=== PATIENT | female | born 1950 | race American Indian/Alaskan Native ===

== ENCOUNTER 2017-06-17 16:22 | Emergency (ER) | payer MEDICARE ==
--- NOTE | 2017-06-17 17:35 | Emergency Department Report ---
ED Psych HPI - General Chief Complaint: Psych Stated Complaint: CAN'T SLEEP Time Seen by Provider: 06/17/17 17:17 Source: patient Mode of arrival: Ambulatory - History of Present Illness Initial Comments: 67-year-old female presents to the ER with complaints of suicidal ideation. This has been going on for the last 2 weeks. Patient attributes this problem to her psychiatric medications not working like they should. She rigors have been ordered. Patient also on quinine name, denies visual hallucinations, she has a plan for suicidal ideations but she does not internal pain amounts. She plans on overdosing on psych medications she denies homicidal ideations she Mata's history of amotivation, insomnia, no energy and no mood, she stated there has been no change in appetite. She does have a past history of similar problems, some in the past have required institutionalization. MD Complaint: suicidal ideation, feels depressed -: Gradual, week(s) (2) Associated Psychiatric Symptoms: depression, suicidal ideation, racing thoughts , auditory hallucinations, delusions History of same: Yes Quality: intermittent Improves With: none Worsens With: none Associated Symptoms: denies other symptoms, insomnia. denies: confusion, headache, shortness of breath, nausea, vomiting, syncope Treatments Prior to Arrival: placed on mental he If Self Harm: admits thoughts of, has plan, intentional overdose - Related Data Home Medications Medication Instructions Recorded Confirmed Last Taken ARIPiprazole [Abilify TAB] 5 mg PO DAILY 07/16/15 06/17/17 06/16/17 Cholecalciferol Vit D3 [Vitamin D3] 1,000 unit PO QDAY 07/16/15 06/17/17 Haloperidol [Haldol] 2 mg PO QHS 07/16/15 06/17/17 06/16/17 LORazepam [Ativan] 1 mg PO QHS 07/16/15 06/17/17 06/16/17 Lisinopril/Hydrochlorothiazide 1 tab PO QDAY 07/16/15 06/17/17 06/16/17 [Zestoretic 20-25 mg] Multivit-Min/Iron/Folic/Lutein 1 tab PO DAILY 07/16/15 06/17/17 06/16/17 [Centrum Silver Women Tablet] Potassium Chloride 10 meq PO QDAY 07/16/15 06/17/17 06/16/17 lamoTRIgine [LaMICtal] 25 mg PO BID 07/16/15 06/17/17 06/16/17 traZODone [Desyrel] 1 tab PO QHS 07/16/15 06/17/17 06/16/17 Previous Rx's Medication Instructions Recorded Last Taken Type Pantoprazole [Protonix TAB] 40 mg PO DAILY #30 tablet 07/19/15 06/16/17 Rx Allergies Allergy/AdvReac Type Severity Reaction Status Date / Time lithium Allergy Hives Verified 06/17/17 19:53 ED Review of Systems ROS: Stated complaint: CAN'T SLEEP Other details as noted in HPI Constitutional: denies: chills, diaphoresis, fever, malaise, weakness Eyes: denies: eye pain, eye discharge, vision change ENT: denies: ear pain, throat pain, dental pain, hearing loss Respiratory: denies: see HPI, cough, shortness of breath, SOB with exertion Cardiovascular: denies: chest pain, palpitations, dyspnea on exertion, edema, syncope, paroxysmal nocturnal dyspnea Endocrine: denies: no symptoms reported, increased hunger, increased thirst, increased urine Gastrointestinal: denies: abdominal pain, nausea, vomiting, diarrhea, constipation, melena Genitourinary: denies: urgency, dysuria, frequency, hematuria Musculoskeletal: denies: joint swelling, arthralgia Skin: denies: change in color, change in hair/nails Neurological: denies: headache, weakness, numbness Psychiatric: as per HPI, depression, auditory hallucinations, suicidal thoughts. denies: visual hallucinations, homicidal thoughts Hematological/Lymphatic: denies: easy bruising ED Past Medical Hx - Past Medical History Hx Hypertension: Yes Hx Congestive Heart Failure: No Hx Diabetes: No Hx Psychiatric Treatment: Yes (anxiety) Hx Asthma: No Hx COPD: No Hx HIV: No Additional medical history: Large bowel Polyps - Surgical History Hx Appendectomy: Yes (age 13) Additional Surgical History: tubal ligation. 3 surgeries to feet - Social History Smoking Status: Former Smoker Substance Use Type: None - Medications Home Medications: Home Medications Medication Instructions Recorded Confirmed Last Taken Type ARIPiprazole [Abilify TAB] 5 mg PO DAILY 07/16/15 06/17/17 06/16/17 History Cholecalciferol Vit D3 [Vitamin D3] 1,000 unit PO QDAY 07/16/15 06/17/17 History Haloperidol [Haldol] 2 mg PO QHS 07/16/15 06/17/17 06/16/17 History LORazepam [Ativan] 1 mg PO QHS 07/16/15 06/17/17 06/16/17 History Lisinopril/Hydrochlorothiazide 1 tab PO QDAY 07/16/15 06/17/17 06/16/17 History [Zestoretic 20-25 mg] Multivit-Min/Iron/Folic/Lutein 1 tab PO DAILY 07/16/15 06/17/17 06/16/17 History [Centrum Silver Women Tablet] Potassium Chloride 10 meq PO QDAY 07/16/15 06/17/17 06/16/17 History lamoTRIgine [LaMICtal] 25 mg PO BID 07/16/15 06/17/17 06/16/17 History traZODone [Desyrel] 1 tab PO QHS 07/16/15 06/17/17 06/16/17 History Pantoprazole [Protonix TAB] 40 mg PO DAILY #30 tablet 07/19/15 06/17/17 Rx ED Physical Exam - General Limitations: No Limitations General appearance: alert - Head Head exam: Present: atraumatic, normocephalic, normal inspection - Eye Eye exam: Present: normal appearance, PERRL, EOMI Pupils: Present: normal accommodation - ENT ENT exam: Present: normal exam, normal orophraynx, mucous membranes moist - Neck Neck exam: Present: normal inspection, full ROM - Respiratory Respiratory exam: Present: normal lung sounds bilaterally - Cardiovascular Cardiovascular Exam: Present: regular rate, normal rhythm, normal heart sounds - GI/Abdominal GI/Abdominal exam: Present: soft, normal bowel sounds. Absent: rebound, hyperactive bowel sounds, hypoactive bowel sounds, organomegaly, mass, pulsatile mass - Rectal Rectal exam: Present: deferred - Extremities Exam Extremities exam: Present: normal inspection, full ROM, normal capillary refill - Back Exam Back exam: Present: normal inspection, full ROM. Absent: CVA tenderness (L), muscle spasm, paraspinal tenderness, vertebral tenderness - Neurological Exam Neurological exam: Present: alert, oriented X3, CN II-XII intact, normal gait - Psychiatric Psychiatric exam: Present: depressed, suicidal ideation. Absent: flat affect, manic, homicidal ideation - Skin Skin exam: Present: warm, dry ED Course Vital Signs 06/17/17 06/17/17 16:49 18:42 Temperature 98.1 F 98.6 F Pulse Rate 89 88 Respiratory 18 16 Rate Blood Pressure 130/84 Blood Pressure 115/73 [Right] O2 Sat by Pulse 100 99 Oximetry - Consultations Consultation #1: 06/17/17 20:02 I transferred care of the patient to Dr Fitch ED Medical Decision Making - Lab Data Result diagrams: 06/17/17 17:18 06/17/17 17:18 Critical Care Time: No Critical care attestation.: If time is entered above; I have spent that time in minutes in the direct care of this critically ill patient, excluding procedure time. ED Disposition Clinical Impression: Suicidal ideations Disposition: DC/TX-65 PSY HOSP/PSY UNIT Is pt being admited?: No Does the pt Need Aspirin: No Condition: Stable Time of Disposition: 20:04 (patient transferred to Dr. Fitch)
[2017-06-17 17:44] LABS: Basophils % (Auto) 0.7 % (0.0-1.8); Eosinophils % (Auto) 0.7 % (0.0-4.3); Hematocrit 35.3 % (30.3-42.9); Hemoglobin 11.4 gm/dl (10.1-14.3); Mean Corpuscular HGB Conc 32 % (30-34); Mean Corpuscular Hemoglobin 28 pg (28-32); Mean Corpuscular Volume 86 fl (79-97); Platelet Count 272 K/mm3 (140-440); Red Blood Count 4.12 M/mm3 (3.65-5.03); Red Cell Distribution Width 14.4 % (13.2-15.2)
[2017-06-17 17:45] LABS: BUN/Creatinine Ratio 17.85; Calcium 9.6 mg/dL (8.4-10.2); Chloride 99.4 mmol/L (98-107); Potassium 4.1 mmol/L (3.6-5.0)
[2017-06-17 19:33] LABS: Urine Drugs of Abuse Note Disclamer
[2017-06-17 19:47] LABS: Bacteria,Urine 1+ /HPF (Negative); Bilirubin,Urine NEG (Negative); Blood,Urine NEG (Negative); Ketones,Urine NEG (Negative); Leukocyte Esterase,Urine TR (Negative); Mucus,Urine FEW /HPF; Nitrite,Urine NEG (Negative); Protein,Urine <15 mg/dL mg/dL (Negative); Urobilinogen,Urine < 2.0 mg/dL (<2.0)
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
[2017-06-18 17:37] VITALS: BP 138/72
== END 2017-06-18 17:38 ==
LOC: EEVIPCON 16:22 → ED 16:22
DX: R45.851 Suicidal ideations (principal); I10 Essential (primary) hypertension; F41.9 Anxiety disorder, unspecified; Z90.49 Acquired absence of other specified parts of digestive tract; Z98.51 Tubal ligation status; Z87.891 Personal history of nicotine dependence; Z88.8 Allergy status to other drugs, medicaments and biological substances
CPT/HCPCS: 36415; 80048; 80307; 81001; 85025; 99285; G0480; 80320

== ENCOUNTER 2018-06-29 10:45 | Emergency (ER) | payer MEDICARE ==
[2018-06-29] MEDS ORDERED: ASPIRIN PO ONE (11:07)
--- NOTE | 2018-06-29 12:01 | Emergency Department Report ---
ED Dizziness HPI - General Chief Complaint: Dizziness Stated Complaint: CHEST PAIN Time Seen by Provider: 06/29/18 11:48 Source: family Mode of arrival: Ambulatory Limitations: Language Barrier - History of Present Illness Initial Comments: Patient is 68 years old female with history of hypertension and a remote stroke when she was 41 years old.. The patient presented to the ER complaining of episodes of palpitation right sided chest pain and dizziness. Patient said it happened 3 or 4 times last night. Patient stated that she still having dizziness. Patient denied any headache, focal weakness numbness or tingling sensation. No bowel or bladder incontinence. MD Complaint: dizziness, lightheadedness -: Last night Timing: sudden onset Description: lightheadedness History of Same: No History of Trauma: No Severity: moderate Improves With: nothing Associated Symptoms: chest pain (RT SIDED CHEST PAIN) - Related Data Home Medications Medication Instructions Recorded Confirmed Last Taken ARIPiprazole [Abilify TAB] 5 mg PO DAILY 07/16/15 06/29/18 06/16/17 Cholecalciferol Vit D3 [Vitamin D3] 1,000 unit PO QDAY 07/16/15 06/29/18 Haloperidol [Haldol] 2 mg PO QHS 07/16/15 06/29/18 06/16/17 LORazepam [Ativan] 1 mg PO QHS 07/16/15 06/29/18 06/16/17 Lisinopril/Hydrochlorothiazide 1 tab PO QDAY 07/16/15 06/29/18 06/16/17 [Zestoretic 20-25 mg] Multivit-Min/Iron/Folic/Lutein 1 tab PO DAILY 07/16/15 06/29/18 06/16/17 [Centrum Silver Women Tablet] Potassium Chloride 10 meq PO QDAY 07/16/15 06/29/18 06/16/17 lamoTRIgine [LaMICtal] 25 mg PO BID 07/16/15 06/29/18 06/16/17 traZODone [Desyrel] 1 tab PO QHS 07/16/15 06/29/18 06/16/17 Previous Rx's Medication Instructions Recorded Last Taken Type Pantoprazole [Protonix TAB] 40 mg PO DAILY #30 tablet 07/19/15 06/16/17 Rx Allergies Allergy/AdvReac Type Severity Reaction Status Date / Time lithium Allergy Hives Verified 06/17/17 19:53 ED Review of Systems ROS: Stated complaint: CHEST PAIN Other details as noted in HPI Comment: All other systems reviewed and negative Constitutional: denies: chills, fever Respiratory: denies: cough, orthopnea, shortness of breath, SOB with exertion, wheezing Cardiovascular: chest pain, palpitations. denies: dyspnea on exertion, orthopnea, edema Gastrointestinal: denies: abdominal pain, nausea, vomiting, diarrhea, constipation, hematemesis, melena, hematochezia Genitourinary: denies: urgency, dysuria, frequency, hematuria Neurological: denies: headache, weakness, numbness, paresthesias, confusion, abnormal gait Psychiatric: anxiety. denies: depression, auditory hallucinations, visual hallucinations, homicidal thoughts, suicidal thoughts ED Past Medical Hx - Past Medical History Previous Medical History?: Yes Hx Hypertension: Yes Hx CVA: Yes (I had a stroke when i was 41 years old) Hx Congestive Heart Failure: No Hx Diabetes: No Hx Psychiatric Treatment: Yes (anxiety) Hx Asthma: No Hx COPD: No Hx HIV: No Additional medical history: Large bowel Polyps - Surgical History Hx Appendectomy: Yes (age 13) Additional Surgical History: tubal ligation. 3 surgeries to feet - Social History Smoking Status: Never Smoker - Medications Home Medications: Home Medications Medication Instructions Recorded Confirmed Last Taken Type ARIPiprazole [Abilify TAB] 5 mg PO DAILY 07/16/15 06/29/18 06/16/17 History Cholecalciferol Vit D3 [Vitamin D3] 1,000 unit PO QDAY 07/16/15 06/29/18 History Haloperidol [Haldol] 2 mg PO QHS 07/16/15 06/29/18 06/16/17 History LORazepam [Ativan] 1 mg PO QHS 07/16/15 06/29/18 06/16/17 History Lisinopril/Hydrochlorothiazide 1 tab PO QDAY 07/16/15 06/29/18 06/16/17 History [Zestoretic 20-25 mg] Multivit-Min/Iron/Folic/Lutein 1 tab PO DAILY 07/16/15 06/29/18 06/16/17 History [Centrum Silver Women Tablet] Potassium Chloride 10 meq PO QDAY 07/16/15 06/29/1817 History lamoTRIgine [LaMICtal] 25 mg PO BID 07/16/15 06/29/18 06/16/17 History traZODone [Desyrel] 1 tab PO QHS 07/16/15 06/29/18 06/16/17 History Pantoprazole [Protonix TAB] 40 mg PO DAILY #30 tablet 07/19/15 06/29/18 Rx ED Physical Exam - General Limitations: Language Barrier General appearance: alert, in no apparent distress - Head Head exam: Present: atraumatic, normocephalic, normal inspection - Eye Eye exam: Present: normal appearance, PERRL - ENT ENT exam: Present: normal exam, normal orophraynx, mucous membranes moist, TM's normal bilaterally - Neck Neck exam: Present: normal inspection, full ROM. Absent: tenderness, meningismus, lymphadenopathy, thyromegaly - Respiratory Respiratory exam: Present: normal lung sounds bilaterally. Absent: respiratory distress, wheezes, rales, rhonchi, stridor, chest wall tenderness, accessory muscle use, decreased breath sounds, prolonged expiratory - Cardiovascular Cardiovascular Exam: Present: regular rate, normal rhythm, normal heart sounds - GI/Abdominal GI/Abdominal exam: Present: soft, normal bowel sounds. Absent: distended, tenderness, guarding, rebound, rigid, organomegaly, mass, bruit, pulsatile mass , hernia - Extremities Exam Extremities exam: Present: normal inspection, full ROM, normal capillary refill - Back Exam Back exam: Present: normal inspection, full ROM. Absent: tenderness, CVA tenderness (R), CVA tenderness (L), muscle spasm, paraspinal tenderness, vertebral tenderness, rash noted - Neurological Exam Neurological exam: Present: alert, oriented X3, CN II-XII intact, normal gait, reflexes normal - Psychiatric Psychiatric exam: Present: anxious. Absent: depressed, agitated, flat affect, manic, homicidal ideation, suicidal ideation - Skin Skin exam: Present: warm, intact, normal color ED Course Vital Signs 06/29/18 06/29/18 06/29/18 11:03 13:16 15:45 Temperature 98.0 F Pulse Rate 91 H 62 64 Respiratory 16 16 Rate Blood Pressure 129/81 Blood Pressure 137/80 148/68 [Left] O2 Sat by Pulse 98 99 94 Oximetry 06/29/18 17:29 Temperature Pulse Rate 74 Respiratory 16 Rate Blood Pressure Blood Pressure 112/70 [Left] O2 Sat by Pulse 96 Oximetry ED Medical Decision Making - Lab Data Result diagrams: 06/29/18 11:40 06/29/18 11:40 - EKG Data -: EKG Interpreted by Ne EKG shows normal: sinus rhythm Rate: normal - EKG Data Interpretation: no acute changes - Radiology Data Radiology results: report reviewed Referring Physician: VANCE BOUCHER Patient Name: KERRIE DIXON Date of : 1950 Sex: Female Report Date: 2018-06-29 Report Status: Finalized Findings [facility] [address] [place] [address] Cat Scan Report Signed Patient: KERRIE DIXON MR#: [id number] : 1950 Acct:[id number] Age/Sex: 68 / F ADM Date: 06/29/18 Loc: ED Attending Dr: Ordering Physician: VANCE BOUCHER Date of Service: 06/29/18 Procedure(s): CT angio chest Accession Number(s): [id number] cc: VANCE BOUCHER FINAL REPORT EXAM: CT ANGIO CHEST HISTORY: CHEST PAIN, palpitation TECHNIQUE: CT examination of the chest with IV contrast CT angiographic 2D and thick slab 3D image post-processing PRIORS: None. FINDINGS: Normal cardiac size without pericardial effusion. Intact normal caliber thoracic aorta with slight calcified atherosclerotic plaque. Normal-appearing esophagus. No evidence of hilar mass or mediastinal adenopathy. The visualized pulmonary arteries are diffusely patent bilaterally. There is no filling defect to suggest PE. A nonspecific, smoothly marginated, low density, simple appearing left renal lesion is statistically most likely a cyst. Degenerative change regional skeleton. No evidence of acute fracture. No pneumothorax, pleural effusion, or focal pulmonary consolidation. Nonspecific irregularly marginated ground-glass with adjacent linear densities are noted in the right middle lobe anteriorly. These likely reflect scarring. Differential includes slight atelectasis or minimal pneumonitis. Largest region measures approximately 12 mm. IMPRESSION: Nonspecific ground-glass opacities in right middle lobe may be scarring, atelectasis, or pneumonitis. Largest is 12 mm. Given a minimally nodular appearance to these areas of density, consider followup chest CT in 3-6 months to ensure stability or resolution No CT evidence of PE Transcribed By: ANA Dictated By: CORAL HOUSER MD Electronically Authenticated By: CORAL HOUSER MD Signed Date/Time: 06/29/181436 DD/ 36 TD/TT: 06/29/181436 - Medical Decision Making Pineda is 68 years old female with history of hypertension and a remote stroke when she was 41 years old. The patient presented to the ER complaining of episodes of palpitation right sided chest pain and dizziness. Patient said it happened 3 or 4 times last night. Patient stated that she still having dizziness. Patient denied any headache, focal weakness numbness or tingling sensation. No bowel or bladder incontinence. Patient immediately put on configuration management specialist. EKG is 90 specific was no acute ST elevation. 2 sets of troponin is negative. Patient d-dimer came back slightly But the CTA chest is negative for acute PE. CT brain is negative for acute finding to explain her dizziness. Patient stated that she did not have any more episodes. 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 Patient discharged home in a stable clinical condition. Critical care attestation.: If time is entered above; I have spent that time in minutes in the direct care of this critically ill patient, excluding procedure time. ED Disposition Clinical Impression: Chest pain, Palpitation Disposition: DC-01 TO HOME OR SELFCARE Is pt being admited?: No Condition: Stable Instructions: Chest Pain (ED) Referrals: PRIMARY CARE, [Primary Care Provider] - 3-5 Days
[2018-06-29 12:13] LABS: Basophils % (Auto) 1.2 % (0.0-1.8); Eosinophils # (Auto) 0.1 K/mm3 (0.0-0.4); Hematocrit 38.3 % (30.3-42.9); Hemoglobin 12.2 gm/dl (10.1-14.3); Lymphocytes # (Auto) 1.1 K/mm3 (1.2-5.4); Lymphocytes % (Auto) 36.8 % (13.4-35.0); Mean Corpuscular HGB Conc 32 % (30-34); Mean Corpuscular Hemoglobin 27 pg (28-32); Mean Corpuscular Volume 85 fl (79-97); Monocytes # (Auto) 0.4 K/mm3 (0.0-0.8); Monocytes % (Auto) 13.4 % (0.0-7.3); Platelet Count 277 K/mm3 (140-440); Red Blood Count 4.48 M/mm3 (3.65-5.03); Red Cell Distribution Width 14.8 % (13.2-15.2)
[2018-06-29 12:16] LABS: INR 0.97 (0.87-1.13)
[2018-06-29 12:17] LABS: Partial Thromboplastin Time 27.1 Sec. (24.2-36.6)
[2018-06-29 12:21] LABS: BUN/Creatinine Ratio 8; Blood Urea Nitrogen 10 mg/dL (7-17); Calcium 9.9 mg/dL (8.4-10.2); Hemolysis Index 2
[2018-06-29 12:26] LABS: Bacteria,Urine 1+ /HPF (Negative); Bilirubin,Urine NEG (Negative); Blood,Urine NEG (Negative); Color,Urine Yellow (Yellow); Hyaline Casts,Urine 3 /LPF; Mucus,Urine FEW /HPF; Urobilinogen,Urine < 2.0 mg/dL (<2.0)
--- NOTE | 2018-06-29 14:38 | Cat Scan Report ---
FINAL REPORT EXAM: CT ANGIO CHEST HISTORY: CHEST PAIN, palpitation TECHNIQUE: CT examination of the chest with IV contrast CT angiographic 2D and thick slab 3D image post-processing PRIORS: None. FINDINGS: Normal cardiac size without pericardial effusion. Intact normal caliber thoracic aorta with slight calcified atherosclerotic plaque. Normal-appearing esophagus. No evidence of hilar mass or mediastinal adenopathy. The visualized pulmonary arteries are diffusely patent bilaterally. There is no filling defect to suggest PE. A nonspecific, smoothly marginated, low density, simple appearing left renal lesion is statistically most likely a cyst. Degenerative change regional skeleton. No evidence of acute fracture. No pneumothorax, pleural effusion, or focal pulmonary consolidation. Nonspecific irregularly marginated ground-glass with adjacent linear densities are noted in the right middle lobe anteriorly. These likely reflect scarring. Differential includes slight atelectasis or minimal pneumonitis. Largest region measures approximately 12 mm. IMPRESSION: Nonspecific ground-glass opacities in right middle lobe may be scarring, atelectasis, or pneumonitis. Largest is 12 mm. Given a minimally nodular appearance to these areas of density, consider followup chest CT in 3-6 months to ensure stability or resolution No CT evidence of PE
[2018-06-29 17:35] VITALS: BP 112/70
--- NOTE | 2018-07-01 07:51 | Cat Scan Report ---
FINAL REPORT EXAM: CT HEAD/BRAIN WO CON HISTORY: dizziness TECHNIQUE: CT imaging is acquired through the brain without contrast. Transaxial reformations are provided. PRIORS: None. FINDINGS: Ventricles and CSF spaces are proportionately enlarged, consistent with parenchymal atrophy. Scattered deep and subcortical white matter hypodense foci are confluent in some areas and are compatible with microvascular angiopathy. No acute intracranial hemorrhage or mass effect. No skull fracture. No significant abnormality within the imaged paranasal sinuses or mastoid air cells. IMPRESSION: No acute intracranial abnormality. There are chronic sequela of mild atrophy and microvascular angiopathy.
== END 2018-06-29 18:05 | disposition home or self-care (01) ==
LOC: ED 10:45
DX: R07.89 Other chest pain (principal); R00.2 Palpitations; R42 Dizziness and giddiness; I10 Essential (primary) hypertension; F41.9 Anxiety disorder, unspecified; Z86.73 Personal history of transient ischemic attack (TIA), and cerebral infarction without residual deficits; Z98.51 Tubal ligation status; Z91.09 Other allergy status, other than to drugs and biological substances
CPT/HCPCS: 36415; 70450; 71275; 80048; 81001; 84484; 85025; 85379; 85610; 85730; 93005; 93010; 99285; Q9967

== ENCOUNTER 2019-05-05 13:48 | Emergency (ER) | payer MEDICARE ==
[2019-05-05 14:18] LABS: Basophils % (Auto) 0.9 % (0.0-1.8); Eosinophils # (Auto) 0.2 K/mm3 (0.0-0.4); Eosinophils % (Auto) 5.2 % (0.0-4.3); Hematocrit 38.6 % (30.3-42.9); Hemoglobin 12.5 gm/dl (10.1-14.3); Lymphocytes # (Auto) 1.4 K/mm3 (1.2-5.4); Lymphocytes % (Auto) 32.6 % (13.4-35.0); Mean Corpuscular HGB Conc 32 % (30-34); Mean Corpuscular Volume 85 fl (79-97); Monocytes # (Auto) 0.4 K/mm3 (0.0-0.8); Monocytes % (Auto) 9.1 % (0.0-7.3); Platelet Count 333 K/mm3 (140-440); Red Blood Count 4.52 M/mm3 (3.65-5.03)
[2019-05-05 14:26] LABS: INR 0.99 (0.87-1.13); Partial Thromboplastin Time 25.2 Sec. (24.2-36.6)
[2019-05-05 14:27] LABS: Thrombin Time 22.9 Sec. (15.1-19.6)
[2019-05-05 14:46] LABS: BUN/Creatinine Ratio 14; Blood Urea Nitrogen 19 mg/dL (7-17); Calcium 9.6 mg/dL (8.4-10.2); Hemolysis Index 5
--- NOTE | 2019-05-05 15:44 | Cat Scan Report ---
CT BRAIN: 05/05/2019 INDICATION / CLINICAL INFORMATION: slurred speech. COMPARISON: 06/29/2018 FINDINGS: BRAIN/INTRACRANIAL STRUCTURES: Unenhanced CT images of the brain demonstrate no evidence of acute abn ormality. Ventricles and sulci are prominent in size, consistent with diffuse cerebral atrophy. There is no CT evidence of acute ischemic injury, hemorrhage, or mass. There are no abnormal extra-ax ial fluid collections. EXTRACRANIAL STRUCTURES: Unremarkable. IMPRESSION: No acute abnormality. All CT scans at this location are performed using dose reduction to ALARA by means of automated expos ure control. Signer Name: Keven Dickson MD Signed: 05/05/2019 3:40 PM Workstation Name: [id number]
--- NOTE | 2019-05-05 16:24 | Emergency Department Report ---
ED Neuro Deficit HPI - General Chief Complaint: Neuro Symptoms/Deficit Stated Complaint: HEAD PRESSURE/STROKE SYMS Time Seen by Provider: 05/05/19 14:21 Source: patient Mode of arrival: Ambulatory Limitations: No Limitations - History of Present Illness Initial Comments: Mrs. Sung is a very pleasant 68-year-old female with history of CVA, bipolar disorder, hypertension, dyslipidemia who presents with lightheadedness, headache and drooling for the past month. Her psychiatrist is Dr. Youssef has adjusted her medications due to these symptoms. Medication doxepin was started mid-March. She wanted to ensure that she did not have a stroke. She denies speech or gait difficulty. -: Gradual, month(s) (1) Place: home Severity: mild Improves With: none Worsens With: none On Anticoagulants: No Context: gradual onset Associated Symptoms: headaches, other (light headedness) - Related Data Home Medications: Home Medications Medication Instructions Recorded Confirmed Last Taken ARIPiprazole [Abilify TAB] 5 mg PO QAM 07/16/15 05/05/19 05/05/19 Doxepin [SINEquan] 50 mg PO QHS 05/05/19 05/05/19 05/05/19 Lisinopril [Zestril] 20 mg PO QDAY 05/05/19 05/05/19 05/05/19 lamoTRIgine [LaMICtal] 100 mg PO QDAY 05/05/19 05/05/19 05/05/19 Allergies/Adverse Reactions: Allergies Allergy/AdvReac Type Severity Reaction Status Date / Time lithium Allergy Hives Verified 06/17/17 19:53 ED Review of Systems ROS: Stated complaint: HEAD PRESSURE/STROKE SYMS Other details as noted in HPI Comment: All other systems reviewed and negative Constitutional: denies: fever, malaise Respiratory: denies: shortness of breath Cardiovascular: denies: chest pain Neurological: headache. denies: numbness, paresthesias, confusion ED Past Medical Hx - Past Medical History Previous Medical History?: Yes Hx Hypertension: Yes Hx CVA: Yes (I had a stroke when i was 41 years old) Hx Congestive Heart Failure: No Hx Diabetes: No Hx Psychiatric Treatment: Yes (anxiety) Hx Asthma: No Hx COPD: No Hx HIV: No Additional medical history: Large bowel Polyps - Surgical History Hx Appendectomy: Yes (age 13) Additional Surgical History: tubal ligation. 3 surgeries to feet - Social History Smoking Status: Never Smoker - Medications Home Medications: Home Medications Medication Instructions Recorded Confirmed Last Taken Type ARIPiprazole [Abilify TAB] 5 mg PO QAM 07/16/15 05/05/19 05/05/19 History Doxepin [SINEquan] 50 mg PO QHS 05/05/19 05/05/19 05/05/19 History Lisinopril [Zestril] 20 mg PO QDAY 05/05/19 05/05/19 05/05/19 History lamoTRIgine [LaMICtal] 100 mg PO QDAY 05/05/19 05/05/19 05/05/19 History ED Neuro Physical Exam - General Limitations: No Limitations General appearance: alert, in no apparent distress Suspected Stroke: No - Head Head exam: Present: atraumatic, normocephalic - Eye Eye exam: Present: normal appearance - ENT ENT exam: Present: mucous membranes moist - Neck Neck exam: Present: normal inspection, full ROM - Respiratory Respiratory exam: Present: normal lung sounds bilaterally. Absent: respiratory distress, wheezes, rales, rhonchi - Cardiovascular Cardiovascular Exam: Present: regular rate, normal rhythm, normal heart sounds. Absent: systolic murmur, diastolic murmur, rubs, gallop - GI/Abdominal GI/Abdominal exam: Present: soft, normal bowel sounds. Absent: distended, tenderness, guarding, rebound - Extremities Exam Extremities exam: Present: normal inspection - Back Exam Back exam: Present: normal inspection - Neurological Exam Neurological exam: Present: alert, oriented X3 - NIHSS Assessment Interval: Baseline 1a. Level of Consciousness: alert/keenly responsive 1b. LOC Questions: answers both correctly 1c. LOC Commands: performs tasks correctly 2. Best Gaze: normal 3. Visual: no visual loss 4. Facial Palsy: normal symmetrical movement 5b. Motor Arm Right: no drift 5a. Motor Arm Left: no drift 6a. Motor Leg Left: no drift 6b. Motor Leg Right: no drift 7. Limb Ataxia: absent 8. Sensory: normal 9. Best Language: no aphasia 10. Dysarthria: normal 11. Extinction/Inattention: no abnormality Total Score: 0 Stroke Severity: No Stroke Symptoms - Psychiatric Psychiatric exam: Present: normal affect, normal mood - Skin Skin exam: Present: warm, dry, intact, normal color. Absent: rash ED Course Vital Signs 05/05/19 15:10 Pulse Rate 62 Respiratory 18 Rate Blood Pressure 114/62 O2 Sat by Pulse 100 Oximetry - Lab Data Result diagrams: 05/05/19 14:03 05/05/19 14:03 Lab Results 05/05/19 05/05/19 05/05/19 Range/Units 14:03 14:03 14:03 WBC 4.2 L (4.5-11.0) K/mm3 RBC 4.52 (3.65-5.03) M/mm3 Hgb 12.5 (10.1-14.3) gm/dl Hct 38.6 (30.3-42.9) % MCV 85 (79-97) fl MCH 28 (28-32) pg MCHC 32 (30-34) % RDW 15.0 (13.2-15.2) % Plt Count 333 (140-440) K/mm3 Lymph % (Auto) 32.6 (13.4-35.0) % [place] % (Auto) 9.1 H (0.0-7.3) % Eos % (Auto) 5.2 H (0.0-4.3) % Baso % (Auto) 0.9 (0.0-1.8) % Lymph # 1.4 (1.2-5.4) K/mm3 [place] # 0.4 (0.0-0.8) K/mm3 Eos # 0.2 (0.0-0.4) K/mm3 Baso # 0.0 (0.0-0.1) K/mm3 Seg Neutrophils % 52.2 (40.0-70.0) % Seg Neutrophils # 2.2 (1.8-7.7) K/mm3 PT 12.8 (12.2-14.9) Sec. INR 0.99 (0.87-1.13) APTT 25.2 (24.2-36.6) Sec. Thrombin Time 22.9 H (15.1-19.6) Sec. Sodium 141 (137-145) mmol/L Potassium 4.2 (3.6-5.0) mmol/L Chloride 105.3 (98-107) mmol/L Carbon Dioxide 24 (22-30) mmol/L Anion Gap 16 mmol/L BUN 19 H (7-17) mg/dL Creatinine 1.4 H (0.7-1.2) mg/dL Estimated GFR 45 ml/min BUN/Creatinine Ratio 14 % Glucose 113 H (65-100) mg/dL Calcium 9.6 (8.4-10.2) mg/dL Troponin T < 0.010 (0.00-0.029) ng/mL 05/05/19 16:22 EKG obtained 1457 Rate 90 beats a minute left axis deviation normal intervals no ST elevation or signs of ischemia nonspecific T wave pattern - Medical Decision Making Mrs. uSng presents with "drooling", lightheadedness and mild head pressure. No indication of CVA. EPS vs medication effect could explain symptoms. CT head negative for ischemia changes or acute process. CBC chemistry reviewed unremarkable. I provided reassurance to Mrs. Sung that she did not have a stroke. Critical care attestation.: If time is entered above; I have spent that time in minutes in the direct care of this critically ill patient, excluding procedure time. ED Disposition Clinical Impression: Tension headache, Lightheadedness Disposition: DC-01 TO HOME OR SELFCARE Is pt being admited?: No Does the pt Need Aspirin: No Condition: Stable Instructions: Lightheadedness (ED) Additional Instructions: Please see your primary physician at [facility]. Referrals: RORO HARVEY, JANETH [Referring] - 3-5 Days
[2019-05-05 17:17] VITALS: BP 118/65
== END 2019-05-05 17:16 | disposition home or self-care (01) ==
LOC: ED 13:48
DX: G44.209 Tension-type headache, unspecified, not intractable (principal); R42 Dizziness and giddiness; I10 Essential (primary) hypertension; I25.2 Old myocardial infarction; F41.9 Anxiety disorder, unspecified; Z98.51 Tubal ligation status; Z90.49 Acquired absence of other specified parts of digestive tract; Z79.899 Other long term (current) drug therapy; Z91.09 Other allergy status, other than to drugs and biological substances
CPT/HCPCS: 36415; 70450; 80048; 84484; 85025; 85610; 85670; 85730; 93005; 93010

== ENCOUNTER 2019-07-01 21:16 | Emergency (ER) | payer OTHER, MEDICARE ==
[2019-07-01 22:13] LABS: Basophils % (Auto) 0.3 % (0.0-1.8); Eosinophils % (Auto) 0.1 % (0.0-4.3); Hematocrit 31.1 % (30.3-42.9); Hemoglobin 10.2 gm/dl (10.1-14.3); Lymphocytes # (Auto) 0.4 K/mm3 (1.2-5.4); Lymphocytes % (Auto) 5.1 % (13.4-35.0); Mean Corpuscular HGB Conc 33 % (30-34); Mean Corpuscular Volume 86 fl (79-97); Monocytes # (Auto) 0.4 K/mm3 (0.0-0.8); Monocytes % (Auto) 4.8 % (0.0-7.3); Platelet Count 271 K/mm3 (140-440); Red Blood Count 3.63 M/mm3 (3.65-5.03)
[2019-07-01 22:33] LABS: Calcium 8.9 mg/dL (8.4-10.2)
[2019-07-01] MEDS ORDERED: SODIUM CHLORIDE 0.9% 1000 ML 1,000 ML IV ONE ×2 (22:42)
--- NOTE | 2019-07-01 23:02 | Emergency Department Report ---
ED Medical Clearance HPI - General Chief complaint: Medical Clearance Stated complaint: ABNORMAL LABS Time Seen by Provider: 07/01/19 22:33 Source: EMS Mode of arrival: Stretcher Limitations: Altered Mental Status - History of Present Illness Initial comments: Mrs. Epstein is a 69 yo female with hx of HTN, schizoaffective DO, bipoloar type who presents from [facility] for UVALDO with elevated BUNCR reported. BUN 55/2.39. She was referred to ER for IV fluids. Patient will not provide hx. Documentation from practitioner reveals that patient has not been eating or drinking. MD Complaint: medical clearance request -: Gradual, days(s) (several) Reason for Medical Clearance: laboratory abnormality Place: other (mental health facility) Traumatic Symptoms: other (abnormal labs) Associated Symptoms: other (poor po intake) Treatments Prior to Arrival: medication Home medications: Home Medications Medication Instructions Recorded Confirmed Last Taken ARIPiprazole [Abilify TAB] 5 mg PO QAM 07/16/15 05/05/19 05/05/19 Doxepin [SINEquan] 50 mg PO QHS 05/05/19 05/05/19 05/05/19 Lisinopril [Zestril] 20 mg PO QDAY 05/05/19 05/05/19 05/05/19 lamoTRIgine [LaMICtal] 100 mg PO QDAY 05/05/19 05/05/19 05/05/19 Allergies/Adverse reactions: Allergies Allergy/AdvReac Type Severity Reaction Status Date / Time lithium Allergy Hives Verified 06/17/17 19:53 ED Review of Systems ROS: Stated complaint: ABNORMAL LABS Other details as noted in HPI Comment: Unobtainable due to pts medical conditions (lack of cooperation) ED Past Medical Hx - Past Medical History Previous Medical History?: Yes Hx Hypertension: Yes Hx CVA: Yes (I had a stroke when i was 41 years old) Hx Congestive Heart Failure: No Hx Diabetes: No Hx Psychiatric Treatment: Yes (anxiety,schizoprenia, bipolor) Hx Asthma: No Hx COPD: No Hx HIV: No Additional medical history: Large bowel Polyps - Surgical History Past Surgical History?: Yes Hx Appendectomy: Yes (age 13) Additional Surgical History: tubal ligation. 3 surgeries to feet - Social History Smoking Status: Unknown if ever smoked Substance Use Type: None - Medications Home Medications: Home Medications Medication Instructions Recorded Confirmed Last Taken Type ARIPiprazole [Abilify TAB] 5 mg PO QAM 07/16/15 05/05/19 05/05/19 History Doxepin [SINEquan] 50 mg PO QHS 05/05/19 05/05/19 05/05/19 History Lisinopril [Zestril] 20 mg PO QDAY 05/05/19 05/05/19 05/05/19 History lamoTRIgine [LaMICtal] 100 mg PO QDAY 05/05/19 05/05/19 05/05/19 History ED Physical Exam - General Limitations: Other General appearance: alert, in no apparent distress, other (keeps cover over her head, pulls cover back over head ) - Head Head exam: Present: atraumatic, normocephalic - Eye Eye exam: Present: normal appearance. Absent: scleral icterus - ENT ENT exam: Present: mucous membranes moist - Neck Neck exam: Present: normal inspection, full ROM - Respiratory Respiratory exam: Present: normal lung sounds bilaterally. Absent: respiratory distress, wheezes, rales, rhonchi - Cardiovascular Cardiovascular Exam: Present: regular rate, normal rhythm, normal heart sounds. Absent: systolic murmur, diastolic murmur, rubs, gallop - GI/Abdominal GI/Abdominal exam: Present: soft, normal bowel sounds. Absent: distended, tenderness, guarding, rebound - Extremities Exam Extremities exam: Present: normal inspection - Neurological Exam Neurological exam: Present: alert, other (will not cooperate with exam) - Psychiatric Psychiatric exam: Present: flat affect - Skin Skin exam: Present: warm, dry, intact, normal color. Absent: rash ED Course Vital Signs 07/01/19 07/01/19 07/01/19 21:45 23:00 23:10 Temperature 97.5 F L Pulse Rate 102 H Respiratory 16 Rate Blood Pressure 124/80 117/67 127/57 O2 Sat by Pulse 94 96 98 Oximetry 07/01/19 07/02/19 23:11 00:00 Temperature Pulse Rate Respiratory 16 Rate Blood Pressure 106/81 O2 Sat by Pulse 96 100 Oximetry ED Medical Decision Making - Lab Data Result diagrams: 07/01/19 21:57 07/01/19 21:57 Laboratory Results - last 24 hr 10/01/19 10/01/19 21:57 21:57 WBC 7.4 RBC 3.63 L Hgb 10.2 Hct 31.1 MCV 86 MCH 28 MCHC 33 RDW 15.0 Plt Count 271 Lymph % (Auto) 5.1 L [place] % (Auto) 4.8 Eos % (Auto) 0.1 Baso % (Auto) 0.3 Lymph # 0.4 L [place] # 0.4 Eos # 0.0 Baso # 0.0 Seg Neutrophils % 89.7 H Seg Neutrophils # 6.6 Sodium 142 Potassium 4.6 Chloride 106.5 Carbon Dioxide 19 L Anion Gap 21 BUN 49 H Creatinine 1.1 Estimated GFR 60 BUN/Creatinine Ratio 45 Glucose 96 Calcium 8.9 - Medical Decision Making Mrs. Sung presents with UVALDO BUN 49/Cr 1.1, different from reported labs. She received IVF in the ED during this encounter.. I do not suspect delirium or a medical cause for her altered mental status. She has deliberate, appropriate maneuvers while not speaking. I do not suspect stroke, meningitis or acute emergent condition otherwise. We were able to obtained labs and documentationf from [facility]. Also reviewed history and physical. Patient did have elevated BUN and creatinine during ED encounter this morning documented at July 01. BUN 71 creatinine 2.5 she appropriately received 2 L IV fluid. She was then discharged back to [facility]. She was evaluated for worsening mental status. More delusional insomnia and verbally/physically aggressive. Documented loud speech and nonsensical conversation. In the ED she is currently sedated but making appropriate deliberate movements. It appears that the kidney function did respond appropriately with IVF administered at [facility], marked improvement of BUN and creatinine. After treatment in the ED, Mrs. Sung did drink juice of her own volition. She is discharged back to [facility]. Family members informed RN that Mrs. Sung had previously received Lasix for lower extremity swelling. Prerenal injury caused by poor po intake as well as diuresis. ED Disposition Clinical Impression: UVALDO (acute kidney injury), Prerenal acute renal failure Disposition: DC/TX-70 ANOTHER TYPE HLTHCARE Is pt being admited?: No Does the pt Need Aspirin: No Condition: Stable Additional Instructions: Creatinine 1.1 prior to additional IVF
[2019-07-02 02:06] VITALS: BP 115/75
== END 2019-07-02 03:07 | disposition other institution (70) ==
LOC: ED 21:16
DX: N17.9 Acute kidney failure, unspecified (principal); I10 Essential (primary) hypertension; F25.9 Schizoaffective disorder, unspecified; F31.81 Bipolar II disorder; F41.9 Anxiety disorder, unspecified; Z90.49 Acquired absence of other specified parts of digestive tract; Z98.51 Tubal ligation status; Z79.899 Other long term (current) drug therapy; Z88.5 Allergy status to narcotic agent; Z86.73 Personal history of transient ischemic attack (TIA), and cerebral infarction without residual deficits
CPT/HCPCS: 36415; 80048; 85025; 99283; J7030

== ENCOUNTER 2019-07-10 18:05 | Emergency (ER) | payer MEDICARE ==
--- NOTE | 2019-07-10 18:35 | Event Note ---
ED Screening Note Date of service: 07/10/19 Time: 18:31 ED Screening Note: 69 y/o female comes in for psych eval. Having psych decline. This initial assessment/diagnostic orders/clinical plan/treatment(s) is/are subject to change based on patients health status, clinical progression and re-assessment by fellow clinical providers in the ED. Further treatment and workup at subsequent clinical providers discretion. Patient/guardian urged not to elope from the ED as their condition may be serious if not clinically assessed and managed. Initial orders include:
--- NOTE | 2019-07-10 21:41 | Emergency Department Report ---
ED Psych HPI - General Chief Complaint: Psych Stated Complaint: EVAL CHECK/MEDS Time Seen by Provider: 07/10/19 18:31 Source: family Mode of arrival: Wheelchair Limitations: Altered Mental Status - History of Present Illness Initial Comments: This is a 69-year-old -[place] female who presents to the emergency room with psychosis. Past medical history of schizophrenia and bipolar. Patient family states she was discharged from [facility] today and pain is worse than normal. Patient states she is in a psychosis and medications are not wo rking. She originally was taking medication as prescribed while living in a personal half-way. She was admitted 1 month ago to [facility] after she went into a psychosis state. Her sister states she noticed patient wasn't taking medication for several days or only taking one dose a day. States [facility] changed her sister medication on discharge and she haven't been right since. MD Complaint: altered mental status Onset/Timin -: month(s) Associated Psychiatric Symptoms: racing thoughts History of same: Yes Quality: changing over time Context: new medication(s) Associated Symptoms: denies other symptoms - Related Data Home Medications Medication Instructions Recorded Confirmed Last Taken ARIPiprazole [Abilify TAB] 5 mg PO QAM 07/16/15 07/11/19 05/05/19 Doxepin [SINEquan] 50 mg PO QHS 05/05/19 07/11/19 05/05/19 Lisinopril [Zestril] 20 mg PO QDAY 05/05/19 07/11/19 05/05/19 lamoTRIgine [LaMICtal] 100 mg PO QDAY 05/05/19 07/11/19 05/05/19 Allergies Allergy/AdvReac Type Severity Reaction Status Date / Time lithium Allergy Hives Verified 06/17/17 19:53 ED Review of Systems ROS: Stated complaint: EVAL CHECK/MEDS Other details as noted in HPI Constitutional: denies: chills, fever Respiratory: denies: cough, shortness of breath, wheezing Cardiovascular: denies: chest pain, palpitations Gastrointestinal: denies: abdominal pain, nausea, diarrhea Skin: denies: rash, lesions Neurological: denies: headache, weakness, paresthesias Psychiatric: other (psychosis). denies: visual hallucinations, homicidal thoughts, suicidal thoughts ED Past Medical Hx - Past Medical History Previous Medical History?: Yes Hx Hypertension: Yes Hx CVA: Yes (I had a stroke when i was 41 years old) Hx Congestive Heart Failure: No Hx Diabetes: No Hx Psychiatric Treatment: Yes (anxiety,schizoprenia, bipolor) Hx Asthma: No Hx COPD: No Hx HIV: No Additional medical history: Large bowel Polyps - Surgical History Past Surgical History?: Yes Hx Appendectomy: Yes (age 13) Additional Surgical History: tubal ligation. 3 surgeries to feet - Social History Smoking Status: Never Smoker Substance Use Type: None - Medications Home Medications: Home Medications Medication Instructions Recorded Confirmed Last Taken Type ARIPiprazole [Abilify TAB] 5 mg PO QAM 07/16/15 07/11/19 05/05/19 History Doxepin [SINEquan] 50 mg PO QHS 05/05/19 07/11/19 05/05/19 History Lisinopril [Zestril] 20 mg PO QDAY 05/05/19 07/11/19 05/05/19 History lamoTRIgine [LaMICtal] 100 mg PO QDAY 05/05/19 07/11/19 05/05/19 History ED Physical Exam - General Limitations: Altered Mental Status General appearance: anxious, obese - Respiratory Respiratory exam: Present: normal lung sounds bilaterally. Absent: respiratory distress - Cardiovascular Cardiovascular Exam: Present: regular rate, normal rhythm. Absent: systolic murmur, diastolic murmur, rubs, gallop - Neurological Exam Neurological exam: Present: altered - Psychiatric Psychiatric exam: Present: agitated - Expanded Psychiatric Exam Expanded Focused psych exam: Present: pressured speech, psychomotor agitation, restlessness, loose associations - Skin Skin exam: Present: warm, dry, intact, normal color. Absent: rash ED Course Vital Signs 07/10/19 07/10/19 07/11/19 18:28 20:40 02:00 Temperature 97.3 F L 97.3 F L Pulse Rate 118 H 87 Respiratory 20 18 18 Rate Blood Pressure 117/57 Blood Pressure 110/62 [Left] O2 Sat by Pulse 98 97 Oximetry 07/11/19 07/11/19 07:45 19:50 Temperature 98.2 F 98.2 F Pulse Rate 117 H 99 H Respiratory 20 18 Rate Blood Pressure Blood Pressure 141/82 109/57 [Left] O2 Sat by Pulse 95 100 Oximetry ED Medical Decision Making - Lab Data Result diagrams: 07/10/19 22:24 07/10/19 22:24 Lab Results 07/10/19 07/10/19 07/10/19 Range/Units 22:24 22:24 22:24 WBC 4.0 L (4.5-11.0) K/mm3 RBC 3.94 (3.65-5.03) M/mm3 Hgb 10.7 (10.1-14.3) gm/dl Hct 33.6 (30.3-42.9) % MCV 85 (79-97) fl MCH 27 L (28-32) pg MCHC 32 (30-34) % RDW 14.9 (13.2-15.2) % Plt Count 341 (140-440) K/mm3 Lymph % (Auto) 26.7 (13.4-35.0) % [place] % (Auto) 13.8 H (0.0-7.3) % Eos % (Auto) 3.3 (0.0-4.3) % Baso % (Auto) 0.5 (0.0-1.8) % Lymph # 1.1 L (1.2-5.4) K/mm3 [place] # 0.5 (0.0-0.8) K/mm3 Eos # 0.1 (0.0-0.4) K/mm3 Baso # 0.0 (0.0-0.1) K/mm3 Seg Neutrophils % 55.7 (40.0-70.0) % Seg Neutrophils # 2.2 (1.8-7.7) K/mm3 Sodium 141 (137-145) mmol/L Potassium 4.8 (3.6-5.0) mmol/L Chloride 102.9 (98-107) mmol/L Carbon Dioxide 27 (22-30) mmol/L Anion Gap 16 mmol/L BUN 28 H (7-17) mg/dL Creatinine 1.4 H (0.7-1.2) mg/dL Estimated GFR 45 ml/min BUN/Creatinine Ratio 20 % Glucose 109 H (65-100) mg/dL Calcium 9.2 (8.4-10.2) mg/dL Total Bilirubin 0.30 (0.1-1.2) mg/dL AST 14 (5-40) units/L ALT 17 (7-56) units/L Alkaline Phosphatase 78 (35-129) units/L Total Protein 7.4 (6.3-8.2) g/dL Albumin 4.1 (3.9-5) g/dL Albumin/Globulin Ratio 1.2 % Salicylates < 0.3 L (2.8-20.0) mg/dL Acetaminophen (10.0-30.0) ug/mL Plasma/Serum Alcohol (0-0.07) % 07/10/19 07/10/19 Range/Units 22:24 22:24 WBC (4.5-11.0) K/mm3 RBC (3.65-5.03) M/mm3 Hgb (10.1-14.3) gm/dl Hct (30.3-42.9) % MCV (79-97) fl MCH (28-32) pg MCHC (30-34) % RDW (13.2-15.2) % Plt Count (140-440) K/mm3 Lymph % (Auto) (13.4-35.0) % [place] % (Auto) (0.0-7.3) % Eos % (Auto) (0.0-4.3) % Baso % (Auto) (0.0-1.8) % Lymph # (1.2-5.4) K/mm3 [place] # (0.0-0.8) K/mm3 Eos # (0.0-0.4) K/mm3 Baso # (0.0-0.1) K/mm3 Seg Neutrophils % (40.0-70.0) % Seg Neutrophils # (1.8-7.7) K/mm3 Sodium (137-145) mmol/L Potassium (3.6-5.0) mmol/L Chloride (98-107) mmol/L Carbon Dioxide (22-30) mmol/L Anion Gap mmol/L BUN (7-17) mg/dL Creatinine (0.7-1.2) mg/dL Estimated GFR ml/min BUN/Creatinine Ratio % Glucose (65-100) mg/dL Calcium (8.4-10.2) mg/dL Total Bilirubin (0.1-1.2) mg/dL AST (5-40) units/L ALT (7-56) units/L Alkaline Phosphatase (35-129) units/L Total Protein (6.3-8.2) g/dL Albumin (3.9-5) g/dL Albumin/Globulin Ratio % Salicylates (2.8-20.0) mg/dL Acetaminophen < 5.0 L (10.0-30.0) ug/mL Plasma/Serum Alcohol < 0.01 (0-0.07) % - Medical Decision Making Patient evaluated by this provider. Vitals are stable. Patient is in acute psychosis and anxious. Past medical history bipolar and schizophrenia. Patient discharged from [facility] today. Medication recently changed caused worsening psychosis. Given Geodon 20 mg IM while in ER. Reel Operator mental health who agreed patient needed to be placed on 1013 [address]. Reel Operator attending Dr. Watt who initiated 1013 hold. Critical care attestation.: If time is entered above; I have spent that time in minutes in the direct care of this critically ill patient, excluding procedure time. ED Disposition Clinical Impression: Psychosis Qualifiers: Psychosis type: other Qualified Code(s): F28 - Other psychotic disorder not due to a substance or known physiological condition Disposition: DC/TX-65 PSY HOSP/PSY UNIT Is pt being admited?: No Condition: Stable Referrals: RORO HARVEY, PAC-C [Primary Care Provider] - 3-5 Days
[2019-07-10 23:00] LABS: Basophils % (Auto) 0.5 % (0.0-1.8); Eosinophils # (Auto) 0.1 K/mm3 (0.0-0.4); Eosinophils % (Auto) 3.3 % (0.0-4.3); Hematocrit 33.6 % (30.3-42.9); Hemoglobin 10.7 gm/dl (10.1-14.3); Lymphocytes # (Auto) 1.1 K/mm3 (1.2-5.4); Lymphocytes % (Auto) 26.7 % (13.4-35.0); Mean Corpuscular HGB Conc 32 % (30-34); Mean Corpuscular Volume 85 fl (79-97); Monocytes # (Auto) 0.5 K/mm3 (0.0-0.8); Monocytes % (Auto) 13.8 % (0.0-7.3); Platelet Count 341 K/mm3 (140-440); Red Blood Count 3.94 M/mm3 (3.65-5.03); Red Cell Distribution Width 14.9 % (13.2-15.2)
[2019-07-10 23:21] LABS: Albumin 4.1 g/dL (3.9-5); Calcium 9.2 mg/dL (8.4-10.2)
[2019-07-11] MEDS ORDERED: ZIPRASIDONE MESYLATE 20 MG VIAL IM ONE (00:32)
--- NOTE | 2019-07-11 10:29 | Consultation ---
History of Present Illness - Reason for Consult Consult date: 07/11/19 Reason for consult: Mental Health Evaluation Requesting physician: PUNEET GARCIA - Chief Complaint Chief complaint: "What do you want" - History of Present Psychiatric Illness 69 y.o. Aa female who presented to the ER for bizarre behavior per her family member. Today the patient was preoccupied during the assessment. She could not answer any questions logically, possibly responding to some type of stimuli. Several attempts was made to engage the patient, but was unsuccessful. Per the notes, the patient was recently discharged from [facility]. Overall, the patient isn't a good historian at this time. Medications and Allergies Allergies Allergy/AdvReac Type Severity Reaction Status Date / Time lithium Allergy Hives Verified 06/17/17 19:53 Home Medications Medication Instructions Recorded Confirmed Last Taken Type ARIPiprazole [Abilify TAB] 5 mg PO QAM 07/16/15 07/11/19 05/05/19 History Doxepin [SINEquan] 50 mg PO QHS 05/05/19 07/11/19 05/05/19 History Lisinopril [Zestril] 20 mg PO QDAY 05/05/19 07/11/19 05/05/19 History lamoTRIgine [LaMICtal] 100 mg PO QDAY 05/05/19 07/11/19 05/05/19 History Past psychiatric history - Past Medical History Past Medical History: other (Unable to obtain ) Past Surgical History: Other (Unable to obtain) - past Psychiatric treatment and history psychiatric treatment history: Unable to obtain a psy hx and fam psy hx. - Social History Social history: lives with family Mental Status Exam - Vital signs Last Vital Signs Temp 98.2 F 07/11/19 07:45 Pulse 117 H 07/11/19 07:45 Resp 20 07/11/19 07:45 BP 141/82 07/11/19 07:45 Pulse Ox 95 07/11/19 07:45 - Exam Narrative exam: MSE: Appearance: disheveled Behavior: poor eye contact Speech: regular rate and loud tone Mood: preoccupied Affect: congruent to mood Thought Process: disorganized, tangential Thought Content: denies SI/HI's with AVH's, possibly responding to some type of stimuli Motor Activity: ambulatory Cognition: A/Ox 3 Insight: poor Judgment: poor + Results Result Diagrams: 07/10/19 22:24 07/10/19 22:24 Abnormal lab results 07/10/19 07/10/19 07/10/19 Range/Units 22:24 22:24 22:24 WBC 4.0 L (4.5-11.0) K/mm3 MCH 27 L (28-32) pg [place] % (Auto) 13.8 H (0.0-7.3) % Lymph # 1.1 L (1.2-5.4) K/mm3 BUN 28 H (7-17) mg/dL Creatinine 1.4 H (0.7-1.2) mg/dL Glucose 109 H (65-100) mg/dL Salicylates < 0.3 L (2.8-20.0) mg/dL Acetaminophen (10.0-30.0) ug/mL 07/10/19 Range/Units 22:24 WBC (4.5-11.0) K/mm3 MCH (28-32) pg [place] % (Auto) (0.0-7.3) % Lymph # (1.2-5.4) K/mm3 BUN (7-17) mg/dL Creatinine (0.7-1.2) mg/dL Glucose (65-100) mg/dL Salicylates (2.8-20.0) mg/dL Acetaminophen < 5.0 L (10.0-30.0) ug/mL All other labs normal. Assessment and Plan Assessment and plan: Impression: Unspecified Psychosis. Today the patient was preoccupied during the assessment. UA/UDS pending. DDx: Schizophrenia, Bipolar DO with psychosis Recommendation/Plan: Continue 1013. Once the patient's UA/UDS result, psy medication will be initiated once the labs are reviewed. Baseline A1c/Lipid panel was ordered for the AM. Dispo: The patient will be referred to inpatient psy services once her UDS/UA result. Staffed with Dr Keenan Yost.
[2019-07-11 19:54] VITALS: BP 109/57
[2019-07-11 20:35] LABS: Bilirubin,Urine NEG (Negative); Blood,Urine SM (Negative); Color,Urine Yellow (Yellow)
[2019-07-11 20:41] LABS: Amphetamine Screen,Urine PRESUMPTIVE NEGATIVE; Cannabinoid Screen,Urine PRESUMPTIVE NEGATIVE; Cocaine Screen,Urine PRESUMPTIVE NEGATIVE; Methadone Screen,Urine PRESUMPTIVE NEGATIVE; Opiate Screen,Urine PRESUMPTIVE NEGATIVE
[2019-07-11 21:19] LABS: Benzodiazepines Screen,Urine PRESUMPTIVE POSITIVE
== END 2019-07-11 22:02 ==
LOC: ED 18:05
DX: F29 Unspecified psychosis not due to a substance or known physiological condition (principal); I10 Essential (primary) hypertension; F20.9 Schizophrenia, unspecified; F31.9 Bipolar disorder, unspecified; Z98.51 Tubal ligation status
CPT/HCPCS: 36415; 80053; 80307; 81001; 85025; 96372; 99285; J3486; 80320; G0480

== ENCOUNTER 2019-07-30 09:41 | Emergency (ER) | payer MEDICARE ==
[2019-07-30] MEDS ORDERED: ZIPRASIDONE MESYLATE 20 MG VIAL IM ONE ×2 (10:20→19:36)
--- NOTE | 2019-07-30 10:32 | Emergency Department Report ---
<[facility] - Last Filed: 07/30/19 16:58> ED General Adult HPI - General Chief complaint: Chest Pain Stated complaint: MH EVAL/SWOLLEN FEET/HEART PAIN Time Seen by Provider: 07/30/19 10:11 Source: family, RN notes reviewed, old records reviewed Mode of arrival: Stretcher Limitations: Altered Mental Status - History of Present Illness Initial comments: 69-year-old -Trist[place] female presents to the emergency room which appears to be for mental health relapse,swollen feet and she says her heart beats. Patient has a current history of schizophrenia, bipolar. Review of patient's chart it was noted the patient was seen here on 07/10/2019 with a urinary tract infection. Patient is a poor historian and not able to answer my questions. Patient's sister came to give more of a history. She reports that in the last week patient has had a decline in her mental status. Sister reports that she's been yelling more agitated and restless, seeing things and talking to people that are not there. Onset/Timin -: week(s) Location: chest - Related Data Home Medications Medication Instructions Recorded Confirmed Last Taken Paliperidone Palmitate [Invega 156 mg IM QMONTH 07/30/19 07/30/19 07/15/19 Sustenna] Trazodone HCl 50 mg PO QDAY 07/30/19 07/30/19 07/29/19 amLODIPine [Norvasc] 5 mg PO DAILY 07/30/19 07/30/19 07/29/19 lamoTRIgine [LaMICtal] 150 mg PO QDAY 07/30/19 07/30/19 07/29/19 Allergies Allergy/AdvReac Type Severity Reaction Status Date / Time lithium Allergy Hives Verified 06/17/17 19:53 ED Review of Systems Comment: Unobtainable due to pts medical conditions ED Past Medical Hx - Past Medical History Previous Medical History?: Yes Hx Hypertension: Yes Hx CVA: Yes (I had a stroke when i was 41 years old) Hx Congestive Heart Failure: No Hx Diabetes: No Hx Psychiatric Treatment: Yes (anxiety,schizoprenia, bipolor) Hx Asthma: No Hx COPD: No Hx HIV: No Additional medical history: Large bowel Polyps - Surgical History Past Surgical History?: Yes Hx Appendectomy: Yes (age 13) Additional Surgical History: tubal ligation. 3 surgeries to feet - Social History Smoking Status: Former Smoker - Medications Home Medications: Home Medications Medication Instructions Recorded Confirmed Last Taken Type Paliperidone Palmitate [Invega 156 mg IM QMONTH 07/30/19 07/30/19 07/15/19 History Sustenna] Trazodone HCl 50 mg PO QDAY 07/30/19 07/30/19 07/29/19 History amLODIPine [Norvasc] 5 mg PO DAILY 07/30/19 07/30/19 07/29/19 History lamoTRIgine [LaMICtal] 150 mg PO QDAY 07/30/19 07/30/19 07/29/19 History ED Physical Exam - General Limitations: No Limitations General appearance: alert, in no apparent distress - Head Head exam: Present: atraumatic, normocephalic - Eye Eye exam: Present: normal appearance, EOMI - ENT ENT exam: Present: mucous membranes moist - Respiratory Respiratory exam: Present: normal lung sounds bilaterally. Absent: respiratory distress - Cardiovascular Cardiovascular Exam: Present: regular rate, normal rhythm. Absent: systolic murmur, diastolic murmur, rubs, gallop - Extremities Exam Extremities exam: Present: normal inspection, full ROM - Back Exam Back exam: Present: normal inspection - Neurological Exam Neurological exam: Present: alert - Psychiatric Psychiatric exam: Present: agitated, anxious - Expanded Psychiatric Exam Expanded Focused psych exam: Present: pressured speech, internal stimuli, paranoid, restlessness, flight of ideas, loose associations - Skin Skin exam: Present: warm, dry, intact, normal color. Absent: rash ED Medical Decision Making - Lab Data Result diagrams: 07/30/19 10:36 07/30/19 10:36 - Radiology Data Radiology results: report reviewed Patient: KERRIE DIXON MR#: [id number] : 1950 Acct:[id number] Age/Sex: 69 / F ADM Date: 07/30/19 Loc: ED Attending Dr: Ordering Physician: MANNY TUCKER Date of Service: 07/30/19 Procedure(s): XR chest 1V ap Accession Number(s): [id number] cc: MANNY TUCKER Fluoro Time In Minutes: CHEST 1 VIEW INDICATION / CLINICAL INFORMATION: Chest pain. COMPARISON: None available. FINDINGS: SUPPORT DEVICES: None. HEART / MEDIASTINUM: No significant abnormality. LUNGS / PLEURA: No significant pulmonary or pleural abnormality.. No pneumothorax. ADDITIONAL FINDINGS: No significant additional findings. IMPRESSION: 1. No acute findings. Signer Name: Felix Simpson MD Signed: 07/30/2019 3:29 PM Workstation Name: [id number] Transcribed By: SS Dictated By: Felix Simpson MD Electronically Authenticated By: Felix Simpson MD Signed Date/Time: 07/30/191528 DD/ 28 TD/TT: - Medical Decision Making 69-year-old -Trist[place] female presents to the emergency room which appears to be for mental health relapse,swollen feet and she says her heart beats. Patient has a current history of schizophrenia, bipolar. Review of patient's chart it was noted the patient was seen here on 07/10/2019 with a urinary tract infection. Patient is a poor historian and not able to answer my questions. Patient's sister came to give more of a history. She reports that in the last week patient has had a decline in her mental status. Sister reports that she's been yelling more agitated and restless, seeing things and talking to people that are not there. Psych protocol has been placed. Chest pain protocol has been placed. ED Disposition Condition: Stable Referrals: PRIMARY CARE, [Primary Care Provider] - 3-5 Days <DI LAYTON - Last Filed: 07/30/19 18:42> ED Review of Systems ROS: Stated complaint: MH EVAL/SWOLLEN FEET/HEART PAIN Other details as noted in HPI ED Course Vital Signs 07/30/19 07/30/19 10:24 10:25 Temperature 98.1 F Pulse Rate 106 H Respiratory 18 18 Rate Blood Pressure 145/100 [Left] O2 Sat by Pulse 97 97 Oximetry ED Medical Decision Making - Lab Data Result diagrams: 07/30/19 10:36 07/30/19 10:36 - Medical Decision Making Medically cleared Critical care attestation.: If time is entered above; I have spent that time in minutes in the direct care of this critically ill patient, excluding procedure time.
[2019-07-30] MEDS ORDERED: WATER FOR INJ Sterile (PF) 10 ML ONE (10:42)
[2019-07-30 11:03] LABS: Hematocrit 33.3 % (30.3-42.9); Hemoglobin 10.6 gm/dl (10.1-14.3); Mean Corpuscular HGB Conc 32 % (30-34); Mean Corpuscular Volume 85 fl (79-97); Platelet Count 283 K/mm3 (140-440); Red Blood Count 3.92 M/mm3 (3.65-5.03)
[2019-07-30 11:16] LABS: Basophils % (Auto) 1.1 % (0.0-1.8); Eosinophils # (Auto) 0.1 K/mm3 (0.0-0.4); Eosinophils % (Auto) 2.1 % (0.0-4.3); Lymphocytes # (Auto) 0.7 K/mm3 (1.2-5.4); Lymphocytes % (Auto) 19.3 % (13.4-35.0); Monocytes # (Auto) 0.4 K/mm3 (0.0-0.8); Monocytes % (Auto) 11.1 % (0.0-7.3)
[2019-07-30 11:18] LABS: Partial Thromboplastin Time 27.4 Sec. (24.2-36.6)
[2019-07-30 11:20] LABS: INR 1.03 (0.87-1.13)
[2019-07-30 11:22] LABS: Alanine Aminotransferase 9 units/L (7-56); Albumin 4.3 g/dL (3.9-5); BUN/Creatinine Ratio 11; Blood Urea Nitrogen 15 mg/dL (7-17); Calcium 9.7 mg/dL (8.4-10.2); Hemolysis Index 0
[2019-07-30 11:55] LABS: Creatine Kinase MB < 1.0 ng/mL (0.0-4.0)
--- NOTE | 2019-07-30 15:34 | XRay Report ---
CHEST 1 VIEW INDICATION / CLINICAL INFORMATION: Chest pain. COMPARISON: None available. FINDINGS: SUPPORT DEVICES: None. HEART / MEDIASTINUM: No significant abnormality. LUNGS / PLEURA: No significant pulmonary or pleural abnormality.. No pneumothorax. ADDITIONAL FINDINGS: No significant additional findings. IMPRESSION: 1. No acute findings. Signer Name: Felix Simpson MD Signed: 07/30/2019 3:29 PM Workstation Name: [id number]
[2019-07-30 20:27] LABS: Bilirubin,Urine NEG (Negative); Blood,Urine NEG (Negative); Color,Urine Yellow (Yellow); Mucus,Urine FEW /HPF; Protein,Urine <15 mg/dL mg/dL (Negative); RBC,Urine < 1.0 /HPF (0.0-6.0); Urobilinogen,Urine < 2.0 mg/dL (<2.0)
[2019-07-30 20:33] LABS: Amphetamine Screen,Urine PRESUMPTIVE NEGATIVE; Cannabinoid Screen,Urine PRESUMPTIVE NEGATIVE; Cocaine Screen,Urine PRESUMPTIVE NEGATIVE; Methadone Screen,Urine PRESUMPTIVE NEGATIVE; Opiate Screen,Urine PRESUMPTIVE NEGATIVE
[2019-07-30 20:53] LABS: Benzodiazepines Screen,Urine PRESUMPTIVE POSITIVE
[2019-07-31 01:14] VITALS: BP 147/95
== END 2019-07-31 00:30 ==
LOC: ED 09:41 → EEVIPCON 09:41 → ED 07-31 00:30
DX: F31.9 Bipolar disorder, unspecified (principal); F20.9 Schizophrenia, unspecified; F41.9 Anxiety disorder, unspecified; Z90.89 Acquired absence of other organs; I10 Essential (primary) hypertension; Z86.73 Personal history of transient ischemic attack (TIA), and cerebral infarction without residual deficits; Z87.891 Personal history of nicotine dependence; Z98.51 Tubal ligation status; Z79.899 Other long term (current) drug therapy; Z88.8 Allergy status to other drugs, medicaments and biological substances
CPT/HCPCS: 36415; 71045; 80053; 80307; 81001; 82550; 82553; 84484; 85025; 85610; 85730; 93005; 93010; 96372; 99285; J3486; 80320; G0480

== ENCOUNTER 2019-09-12 17:17 | Emergency (ER) | payer MEDICARE ==
--- NOTE | 2019-09-12 18:11 | Event Note ---
ED Screening Note Date of service: 09/12/19 Time: 18:06 ED Screening Note: This is a 69 y.o. F. accompanied by sister with bilateral knee pain for Patient sister reports left knee is worse than right knee and warm at night. This initial assessment/diagnostic orders/clinical plan/treatment(s) is/are subject to change based on patients health status, clinical progression and re- assessment by fellow clinical providers in the ED. Further treatment and workup at subsequent clinical providers discretion. Patient/guardian urged not to elope from the ED as their condition may be serious if not clinically assessed and managed. Initial orders include: doppler BLE
--- NOTE | 2019-09-12 21:44 | Emergency Department Report ---
ED Extremity Problem HPI - General Chief complaint: Extremity Problem,Nontraumatic Stated complaint: LT KNEE PAIN Time Seen by Provider: 09/12/19 18:05 Source: family, EMS Mode of arrival: Ambulatory Limitations: No Limitations - History of Present Illness Initial comments: 69 year -[place] female presents to the emergency room for left knee carolynn n and swelling. Family member denies any injury. She is reports that this is chronic pain and swelling become worse today. Family member reports the patient is not able to ambulate for at least 5 days. They deny any falls. They report that her knee tends to be warm at night. They deny given her any pain medication. Patient has a past medical history of schizophrenia and bipolar and anxiety. MD Complaint: joint swelling, joint paint Onset/Timin -: days(s) Location: left, knee History of Same: Yes Consistency: intermittent Associated Symptoms: denies other symptoms - Related Data Home Medications Medication Instructions Recorded Confirmed Last Taken Paliperidone Palmitate [Invega 156 mg IM QMONTH 07/30/19 07/30/19 07/15/19 Sustenna] Trazodone HCl 50 mg PO QDAY 07/30/19 07/30/19 07/29/19 amLODIPine [Norvasc] 5 mg PO DAILY 07/30/19 07/30/19 07/29/19 lamoTRIgine [LaMICtal] 150 mg PO QDAY 07/30/19 07/30/19 07/29/19 Previous Rx's Medication Instructions Recorded Last Taken Type Ibuprofen [Motrin 600 MG tab] 600 mg PO Q8H PRN #30 tablet 09/13/19 Unknown Rx Allergies Allergy/AdvReac Type Severity Reaction Status Date / Time lithium Allergy Hives Verified 09/12/19 17:21 ED Review of Systems ROS: Stated complaint: LT KNEE PAIN Other details as noted in HPI Comment: All other systems reviewed and negative ED Past Medical Hx - Past Medical History Previous Medical History?: Yes Hx Hypertension: Yes Hx CVA: Yes (I had a stroke when i was 41 years old) Hx Congestive Heart Failure: No Hx Diabetes: No Hx Psychiatric Treatment: Yes (anxiety,schizoprenia, bipolor) Hx Asthma: No Hx COPD: No Hx HIV: No Additional medical history: Large bowel Polyps - Surgical History Past Surgical History?: Yes Hx Appendectomy: Yes (age 13) Additional Surgical History: tubal ligation. 3 surgeries to feet - Social History Smoking Status: Never Smoker Substance Use Type: None - Medications Home Medications: Home Medications Medication Instructions Recorded Confirmed Last Taken Type Paliperidone Palmitate [Invega 156 mg IM QMONTH 07/30/19 07/30/19 07/15/19 History Sustenna] Trazodone HCl 50 mg PO QDAY 07/30/19 07/30/19 07/29/19 History amLODIPine [Norvasc] 5 mg PO DAILY 07/30/19 07/30/19 07/29/19 History lamoTRIgine [LaMICtal] 150 mg PO QDAY 07/30/19 07/30/19 07/29/19 History Ibuprofen [Motrin 600 MG tab] 600 mg PO Q8H PRN #30 tablet 09/13/19 Unknown Rx ED Physical Exam - General Limitations: No Limitations General appearance: alert, in no apparent distress - Head Head exam: Present: atraumatic, normocephalic - Eye Eye exam: Present: PERRL, EOMI - ENT ENT exam: Present: mucous membranes moist - Expanded Lower Extremity Exam Left Hip exam: Present: normal inspection, erythema. Absent: tenderness Knee exam: Present: full ROM, swelling, crepidus. Absent: tenderness Lower Leg exam: Present: normal inspection, full ROM. Absent: tenderness, swelling Ankle exam: Present: swelling. Absent: tenderness Neuro vascular tendon exam: Present: no vascular compromise. Absent: extremity cold to touch Gait: Positive: unable to bear weight - Back Exam Back exam: Present: normal inspection - Neurological Exam Neurological exam: Present: alert - Psychiatric Psychiatric exam: Present: normal affect, normal mood - Skin Skin exam: Present: warm, dry, intact, normal color. Absent: rash ED Course Vital Signs 09/12/19 18:05 Temperature 98.7 F Pulse Rate 56 L Respiratory 16 Rate Blood Pressure 170/77 O2 Sat by Pulse 95 Oximetry ED Medical Decision Making - Medical Decision Making 69 year -[place] female presents to the emergency room for left knee pain and swelling. Family member denies any injury. She is reports that this is chronic pain and swelling become worse today. Family member reports the patient is not able to ambulate for at least 5 days. They deny any falls. They report that her knee tends to be warm at night. They deny given her any pain medication. Patient has a past medical history of schizophrenia and bipolar and anxiety. Ultrasounds negative for any DVT. Critical care attestation.: If time is entered above; I have spent that time in minutes in the direct care of this critically ill patient, excluding procedure time. ED Disposition Clinical Impression: Bilateral knee swelling Disposition: DC-01 TO HOME OR SELFCARE Is pt being admited?: No Does the pt Need Aspirin: No Condition: Stable Instructions: Knee Pain (ED) Additional Instructions: Ultrasound is negative for any DVT. Patient appears to have arthritis. Recommend ibuprofen or Aleve for pain management. Follow up with her primary care provider for further evaluation. Prescriptions: Ibuprofen [Motrin 600 MG tab] 600 mg PO Q8H PRN #30 tablet PRN Reason: Pain Referrals: RORO HARVEY, PAC-C [Primary Care Provider] - 3-5 Days
--- NOTE | 2019-09-12 23:43 | Vascular Lab Report ---
DUPLEX DOPPLER LOWER EXTREMITY VEINS, BILATERAL INDICATION: swelling and pain BLE. TECHNIQUE: Duplex doppler imaging was performed through the veins of both lower extremities using venous tin florinda and other maneuvers. COMPARISON: None available. FINDINGS: Right Common Femoral vein: Negative. Right Superficial Femoral vein: Negative. Right Popliteal vein: Negative. Right Calf veins: Negative. Left Common Femoral vein: Negative. Left Superficial Femoral vein: Negative. Left Popliteal vein: Negative. Left Calf veins: Negative. Additional findings: None. IMPRESSION: 1. No sonographic evidence for DVT in either lower extremity. Signer Name: Tina Pang MD Signed: 09/12/2019 11:38 PM Workstation Name: [id number]
[2019-09-13 01:39] VITALS: BP 156/72
== END 2019-09-13 01:37 | disposition home or self-care (01) ==
LOC: ED 17:17
DX: M25.462 Effusion, left knee (principal); M25.461 Effusion, right knee; I10 Essential (primary) hypertension; F31.9 Bipolar disorder, unspecified; Z86.73 Personal history of transient ischemic attack (TIA), and cerebral infarction without residual deficits; Z90.49 Acquired absence of other specified parts of digestive tract; Z98.51 Tubal ligation status; Z98.890 Other specified postprocedural states; Z79.899 Other long term (current) drug therapy; Z88.8 Allergy status to other drugs, medicaments and biological substances
CPT/HCPCS: 93970

== ENCOUNTER 2019-09-14 15:43 | Inpatient (IN) | payer MEDICARE ==
--- NOTE | 2019-09-14 18:54 | Emergency Department Report ---
ED Lower Extremity HPI - General Chief Complaint: Extremity Problem,Nontraumatic Stated Complaint: SWOLLEN FEET/GANGRENE Time Seen by Provider: 09/14/19 18:34 Source: patient Mode of arrival: Stretcher Limitations: No Limitations - History of Present Illness Initial Comments: Mrs. Sung is a 69 yo female with hx of schizophrenia, bipolar disorder, HTN who presents with left foot pain and swelling. She is current a patient at [facility]. She has left foot swelling with sore on the heel. Hx of fall. Ms. Sung is unable to give much hx. Unknown time of onset. Tender to touch. Has not walked in several days. Has had several falls over the past week. Has been unable to walk even with a walker. I obtained additional hx from sister Mrs. Matilde Vanegas per phone. Ms Sung has been in sister's home since last month. Mrs. Sung was independent until May 31 this summer. Mrs. Sung has been confused and not taking her medicine. The mental and functional decline began at that time. Cord into sister psychiatrist was considered the diagnosis of dementia. MD Complaint: foot injury -: Gradual, unknown Injury: Foot: Left Type of Injury: unknown Place: other (unknown) Severity: moderate Improves With: nothing Worsens With: weight bearing Context: other (unknown, has been immobile for severall days) Associated Symptoms: swelling - Related Data Home Medications Medication Instructions Recorded Confirmed Last Taken Paliperidone Palmitate [Invega 156 mg IM QMONTH 07/30/19 07/30/19 07/15/19 Sustenna] Trazodone HCl 50 mg PO QDAY 07/30/19 07/30/19 07/29/19 amLODIPine [Norvasc] 5 mg PO DAILY 07/30/19 07/30/19 07/29/19 lamoTRIgine [LaMICtal] 150 mg PO QDAY 07/30/19 07/30/19 07/29/19 Previous Rx's Medication Instructions Recorded Last Taken Type Ibuprofen [Motrin 600 MG tab] 600 mg PO Q8H PRN #30 tablet 09/13/19 Unknown Rx Allergies Allergy/AdvReac Type Severity Reaction Status Date / Time lithium Allergy Hives Verified 09/12/19 17:21 ED Review of Systems ROS: Stated complaint: SWOLLEN FEET/GANGRENE Other details as noted in HPI Comment: Unobtainable due to pts medical conditions (patient does not provide much hx) Constitutional: fever ED Past Medical Hx - Past Medical History Previous Medical History?: Yes Hx Hypertension: Yes Hx CVA: Yes (I had a stroke when i was 41 years old) Hx Congestive Heart Failure: No Hx Diabetes: No Hx Psychiatric Treatment: Yes (anxiety,schizoprenia, bipolor) Hx Asthma: No Hx COPD: No Hx HIV: No Additional medical history: Large bowel Polyps - Surgical History Hx Appendectomy: Yes (age 13) Additional Surgical History: tubal ligation. 3 surgeries to feet - Social History Smoking Status: Never Smoker Substance Use Type: None - Medications Home Medications: Home Medications Medication Instructions Recorded Confirmed Last Taken Type Paliperidone Palmitate [Invega 156 mg IM QMONTH 07/30/19 07/30/19 07/15/19 History Sustenna] Trazodone HCl 50 mg PO QDAY 07/30/19 07/30/19 07/29/19 History amLODIPine [Norvasc] 5 mg PO DAILY 07/30/19 07/30/19 07/29/19 History lamoTRIgine [LaMICtal] 150 mg PO QDAY 07/30/19 07/30/19 07/29/19 History Ibuprofen [Motrin 600 MG tab] 600 mg PO Q8H PRN #30 tablet 09/13/19 Unknown Rx ED Physical Exam - General Limitations: No Limitations General appearance: alert, in no apparent distress - Head Head exam: Present: atraumatic, normocephalic - Eye Eye exam: Present: normal appearance. Absent: scleral icterus, conjunctival injection - ENT ENT exam: Present: mucous membranes moist - Neck Neck exam: Present: normal inspection, full ROM - Respiratory Respiratory exam: Present: normal lung sounds bilaterally. Absent: respiratory distress, wheezes, rales - Cardiovascular Cardiovascular Exam: Present: regular rate, normal rhythm, normal heart sounds. Absent: systolic murmur, diastolic murmur, rubs, gallop - GI/Abdominal GI/Abdominal exam: Present: soft, normal bowel sounds. Absent: distended, tenderness, guarding, rebound - Extremities Exam Extremities exam: Present: other (left foot mild edema, large dark blister at the heel, minimal swelling to right lower extremity) - Neurological Exam Neurological exam: Present: alert, other (will speak nam) - Psychiatric Psychiatric exam: Present: depressed, flat affect - Skin Skin exam: Present: warm. Absent: rash ED Course Vital Signs 09/14/19 09/14/19 09/14/19 16:02 19:14 23:03 Temperature 97.7 F Pulse Rate 108 H 111 H 103 H Respiratory 16 16 17 Rate Blood Pressure 119/70 113/70 100/49 [Left] O2 Sat by Pulse 97 97 97 Oximetry ED Lower Extremity MDM - Lab Data Result diagrams: 09/14/19 19:14 09/14/19 19:14 - Radiology Data Radiology results: report reviewed AP portable chest: No acute findings according to radiologist CT head: No acute findings. Age-related findings volume loss - Medical Decision Making Mrs. Sung presents with left foot swelling and blister. Possible trauma vs p ressure sore. No evidence of cellulitis or vascular compromise. No evidence of fx. Will need outpatient f/u. I am concerned for apparent functional decline with recent ED evaluation for knee pain 2 days ago. Duplex US of the extremity 2 days ago was negative for DVT. Functional decline with inability to walk differential diagnosis includes neurological insult such as CVA, normal pressure hydrocephalus, dementia Also concern for acute kidney injury elevated BUN, unclear cause. Polypharmacy is also concerned in this scenario. With history of bilateral lower extremity swelling consider cardiac cause such as CHF Critical care attestation.: If time is entered above; I have spent that time in minutes in the direct care of this critically ill patient, excluding procedure time. ED Disposition Clinical Impression: Acute encephalopathy, Acute kidney injury, Swelling of both lower extremities, Blister of left foot Disposition: OP ADMIT IP TO THIS HOSP Is pt being admited?: Yes Does the pt Need Aspirin: No Condition: Stable
[2019-09-14 19:28] LABS: Basophils % (Auto) 0.6 % (0.0-1.8); Eosinophils # (Auto) 0.1 K/mm3 (0.0-0.4); Eosinophils % (Auto) 1.2 % (0.0-4.3); Hematocrit 34.1 % (30.3-42.9); Hemoglobin 10.8 gm/dl (10.1-14.3); Lymphocytes # (Auto) 0.9 K/mm3 (1.2-5.4); Mean Corpuscular HGB Conc 32 % (30-34); Mean Corpuscular Volume 86 fl (79-97); Monocytes # (Auto) 0.7 K/mm3 (0.0-0.8); Monocytes % (Auto) 10.3 % (0.0-7.3); Platelet Count 309 K/mm3 (140-440); Red Blood Count 3.97 M/mm3 (3.65-5.03)
--- NOTE | 2019-09-14 19:28 | XRay Report ---
LEFT ANKLE 3 VIEW(S) LEFT FOOT 3 VIEWS INDICATION / CLINICAL INFORMATION: foot swelling fall earlier today. COMPARISON: None available. FINDINGS: BONES / JOINT(S): No acute fracture or subluxation of the left ankle or left foot. Mild degenerative arthrosis of the 1st MTP joint. SOFT TISSUES: Moderate circumferential soft tissue swelling of the distal left lower leg, left ankle, and left foot. Mild soft tissue irregularity of the posterior aspect of the heel. No definite soft t issue gas. ADDITIONAL FINDINGS: None. Signer Name: Dominick Calvert MD Signed: 09/14/2019 7:24 PM Workstation Name: [email or web address]
[2019-09-14 19:46] LABS: Alanine Aminotransferase 15 units/L (7-56); Albumin 3.1 g/dL (3.9-5); BUN/Creatinine Ratio 29; Blood Urea Nitrogen 43 mg/dL (7-17); Calcium 9.5 mg/dL (8.4-10.2); Hemolysis Index 11
--- NOTE | 2019-09-14 20:00 | Cat Scan Report ---
CT HEAD WITHOUT CONTRAST INDICATION / CLINICAL INFORMATION: altered mental status. TECHNIQUE: All CT scans at this location are performed using CT dose reduction for ALARA by means of automated e xposure control. COMPARISON: 05/05/19 FINDINGS: HEMORRHAGE: None. EXTRA-AXIAL SPACES: Mildly prominent but unchanged. VENTRICULAR SYSTEM: Mildly prominent but unchanged. CEREBRAL PARENCHYMA: No significant abnormality. No acute territorial infarct. MIDLINE SHIFT OR HERNIATION: None. CEREBELLUM / BRAINSTEM: No significant abnormality. ORBITS: Normal as visualized. SOFT TISSUES of HEAD: No significant abnormality. CALVARIUM: No significant abnormality. PARANASAL SINUSES / MASTOID AIR CELLS: Normal as visualized. ADDITIONAL FINDINGS: None. IMPRESSION: 1. No acute intracranial abnormality. 2. Chronic and age-related findings. No change. Signer Name: Dominick Calvert MD Signed: 09/14/2019 7:56 PM Workstation Name: [id number]
--- NOTE | 2019-09-14 20:03 | XRay Report ---
CHEST 1 VIEW 09/14/2019 7:41 PM INDICATION / CLINICAL INFORMATION: weakness. COMPARISON: 07/30/19 FINDINGS: SUPPORT DEVICES: None. HEART / MEDIASTINUM: No significant abnormality. LUNGS / PLEURA: No significant pulmonary or pleural abnormality. No pneumothorax. ADDITIONAL FINDINGS: Thoracic spondylosis is unchanged. IMPRESSION: 1. No acute findings. No change. Signer Name: Dominick Calvert MD Signed: 09/14/2019 7:58 PM Workstation Name: [id number]
[2019-09-14 20:36] LABS: Bilirubin,Urine NEG (Negative); Blood,Urine NEG (Negative); Color,Urine Yellow (Yellow); Hyaline Casts,Urine 4 /LPF; Mucus,Urine FEW /HPF; Protein,Urine <15 mg/dL mg/dL (Negative); RBC,Urine < 1.0 /HPF (0.0-6.0)
[2019-09-14 20:38] LABS: WBC,Urine < 1.0 /HPF (0.0-6.0)
[2019-09-14] MEDS ORDERED: SODIUM CHLORIDE 0.9% 500 ML 500 ML IV ONE (22:31)
[2019-09-14] MEDS ORDERED: ONDANSETRON 4 MG/2 ML INJ IV PRN (23:58)
[2019-09-14] MEDS ORDERED: ACETAMINOPHEN 325 MG TAB PO PRN (23:58)
--- NOTE | 2019-09-15 02:22 | History and Physical Report ---
History of Present Illness Date of examination: 09/14/19 Date of admission: 09/15/19 00:04 Chief complaint: Altered mental status Bilateral foot pain and swelling History of present illness: Patient is a 69-year-old female with known history of bipolar disorder, henri izophrenia, hypertension resident of [facility] presenting to the emergency room today with complaint of lower extremity pain and swelling. Patient has also been noticed to be more confused today and was brought into the emergency room for further evaluation. According to family members patient has become progressively more confused lately and has not been able to ambulate very well. She is also said to have developed some blisters on her lower extremities. Patient is said to have had multiple falls. There has been no history of head injury. There has been no history of fever or chills, no nausea vomiting, no chest pain or shortness of breath. Past History Past Medical History: hypertension, stroke, other (Anxiety, schizophrenia, bipolar disorder.) Past Surgical History: appendectomy, Other (Tubal ligation, foot surgery in the past) Social history: other (Resides at [facility]) Family history: no significant family history Medications and Allergies Allergies Allergy/AdvReac Type Severity Reaction Status Date / Time lithium Allergy Hives Verified 09/12/19 17:21 Home Medications Medication Instructions Recorded Confirmed Last Taken Type Paliperidone Palmitate [Invega 156 mg IM QMONTH 07/30/19 09/15/19 09/13/19 History Sustenna] Trazodone HCl 50 mg PO QDAY 07/30/19 09/15/19 09/13/19 History Ibuprofen [Motrin 600 MG tab] 600 mg PO Q8H PRN #30 tablet 09/13/19 09/15/19 Unknown Rx Donepezil [Aricept] 10 mg PO QDAY 09/15/19 09/15/19 09/14/19 History Ferrous Sulfate [Ferrous Sulfate 09/15/19 09/14/19 History 324 MG] Furosemide [Lasix] 20 mg PO QDAY 09/15/19 09/15/19 09/14/19 History Memantine [Namenda] 10 mg PO BID 09/15/19 09/15/19 09/13/19 History risperiDONE [RisperDAL] 09/15/19 09/14/19 History Active Meds: Active Medications Acetaminophen (Tylenol) 650 mg PO Q4H PRN PRN Reason: Pain MILD(1-3)/Fever >100.5/BONILLA Heparin Sodium (Porcine) (Heparin) 5,000 unit SUB-Q Q8HR HENRI Ondansetron HCl (Zofran) 4 mg IV Q8H PRN PRN Reason: Nausea And Vomiting Sodium Chloride (Sodium Chloride Flush Syringe 10 Ml) 10 ml IV BID HENRI Sodium Chloride (Sodium Chloride Flush Syringe 10 Ml) 10 ml IV PRN PRN PRN Reason: LINE FLUSH Review of Systems ROS unobtainable: due to mental status Exam - Constitutional Vitals: Temp Pulse Resp BP Pulse Ox 97.7 F 83 16 114/64 98 09/14/19 16:02 09/15/19 01:51 09/15/19 01:51 09/15/19 01:51 09/15/19 01:51 General appearance: Present: no acute distress, well-nourished - EENT Eyes: Present: PERRL, EOM intact ENT: hearing intact, clear oral mucosa, dentition normal - Neck Neck: Present: supple, normal ROM - Respiratory Respiratory effort: normal Respiratory: bilateral: CTA - Cardiovascular Rhythm: regular Heart Sounds: Present: S1 & S2 - Extremities Extremities: no ischemia, pulses intact, pulses symmetrical, No edema Peripheral Pulses: within normal limits - Abdominal General gastrointestinal: Present: soft, non-tender, non-distended - Integumentary Integumentary: Present: clear, warm, dry - Musculoskeletal Musculoskeletal: strength equal bilaterally, other (Bilateral heel decubitus) - Psychiatric Psychiatric: cooperative, other (Appears confused) - Neurologic Neurologic: CNII-XII intact, moves all extremities Results - Labs CBC & Chem 7: 09/14/19 19:14 09/14/19 19:14 Labs: Abnormal lab results 09/14/19 09/14/19 Range/Units 19:14 19:14 MCH 27 L (28-32) pg RDW 16.0 H (13.2-15.2) % Lymph % (Auto) 13.0 L (13.4-35.0) % [place] % (Auto) 10.3 H (0.0-7.3) % Lymph # 0.9 L (1.2-5.4) K/mm3 Seg Neutrophils % 74.9 H (40.0-70.0) % Sodium 133 L (137-145) mmol/L Chloride 95.3 L (98-107) mmol/L Carbon Dioxide 20 L (22-30) mmol/L BUN 43 H (7-17) mg/dL Creatinine 1.5 H (0.7-1.2) mg/dL Glucose 105 H (65-100) mg/dL Albumin 3.1 L (3.9-5) g/dL Assessment and Plan - Patient Problems (1) Acute encephalopathy Current Visit: Yes Status: Acute Plan to address problem: Etiology is unclear. However this may be secondary to her medications and or underlying dementia. We will monitor mental status. We also request neurology evaluation and recommendation. (2) Acute kidney injury Current Visit: Yes Status: Acute Plan to address problem: We will monitor BUN and creatinine. We will place a consult to nephrology for evaluation and recommendation. (3) Blister of left foot Current Visit: Yes Status: Acute Plan to address problem: We will request wound care team evaluation of blisters on heels. Will encourage elevation of lower extremities. (4) Swelling of both lower extremities Current Visit: Yes Status: Acute Plan to address problem: Patient currently on diuretics. We also encourage elevation of lower extremities (5) DVT prophylaxis Current Visit: Yes Status: Acute Plan to address problem: Patient placed on subcutaneous heparin. (6) Full code status Current Visit: Yes Status: Acute
[2019-09-15] MEDS ORDERED: IBUPROFEN 600 MG TAB PO PRN (04:41)
[2019-09-15] MEDS: HEPARIN 5,000 UNIT/1 ML VIAL SUB-Q SCH ×3 (05:52→23:13)
--- NOTE | 2019-09-15 09:04 | Consultation ---
History of Present Illness - Reason for Consult Consult date: 09/15/19 acute renal failure - History of Present Illness patient with h/o schizophrenic disorder was admitted yesterdya for altered mental status, CT head was negative for acute intracranial process, she was also found to have swelling in lower extrimities with blisttering, C-ray were negative for acute fracture, she was also found to have abnormal Cr and renal consult was requested Past History Past Medical History: hypertension, stroke, other (Anxiety, schizophrenia, bipolar disorder.) Past Surgical History: appendectomy, Other (Tubal ligation, foot surgery in the past) Social history: other (Resides at [facility]) Family history: no significant family history Medications and Allergies Allergies Allergy/AdvReac Type Severity Reaction Status Date / Time lithium Allergy Hives Verified 09/12/19 17:21 Home Medications Medication Instructions Recorded Confirmed Last Taken Type Paliperidone Palmitate [Invega 156 QMONTH 07/30/19 07/30/19 07/15/19 History Sustenna] Trazodone HCl 50 mg PO QDAY 07/30/19 09/15/19 09/13/19 History Ibuprofen [Motrin 600 MG tab] 600 mg PO Q8H PRN #30 tablet 09/13/19 09/15/19 Unknown Rx Donepezil [Aricept] 10 mg PO QDAY 09/15/19 09/15/19 09/14/19 History Ferrous Sulfate [Ferrous Sulfate 1 tab PO DAILY 09/15/19 Unknown History 324 MG] Furosemide [Lasix] 20 mg PO QDAY 09/15/19 09/15/19 09/14/19 History Memantine [Namenda] 10 mg PO BID 09/15/19 09/15/19 09/13/19 History VALPROIC ACID Liq 10 ml PO BID 09/15/19 09/15/19 Unknown History risperiDONE [RisperDAL] 2 mg PO BID 09/15/19 09/15/19 Unknown History Active Meds: Active Medications Acetaminophen (Tylenol) 650 mg PO Q4H PRN PRN Reason: Pain MILD(1-3)/Fever >100.5/BONILLA Donepezil HCl (Aricept) 10 mg PO QDAY BERT Furosemide (Lasix) 20 mg PO QDAY BERT Heparin Sodium (Porcine) (Heparin) 5,000 unit SUB-Q Q8HR BERT Last Admin: 09/15/19 05:52 Dose: 5,000 unit Documented by: Memantine (Memantine) 10 mg PO BID [facility] Ondansetron HCl (Zofran) 4 mg IV Q8H PRN PRN Reason: Nausea And Vomiting Sodium Chloride (Sodium Chloride Flush Syringe 10 Ml) 10 ml IV BID BERT Sodium Chloride (Sodium Chloride Flush Syringe 10 Ml) 10 ml IV PRN PRN PRN Reason: LINE FLUSH Trazodone HCl (Desyrel) 50 mg PO QDAY BERT Review of Systems All systems: negative (headaches) Exam - Vital Signs Vital signs: Vital Signs Temp Pulse Resp BP Pulse Ox 97.7 F 108 H 16 119/70 97 09/14/19 16:02 09/14/19 16:02 09/14/19 16:02 09/14/19 16:02 09/14/19 16:02 - General Appearance General appearance: well-developed, well-nourished EENT: ATNC, PERRL, mucous membranes moist Neck: Present: neck supple Respiratory: Clear to Ascultation Heart: regular, S1S2 Gastrointestinal: Present: normoactive bowel sounds Integumentary: no rash, warm and dry Neurologic: no focal deficit, no asterixis Musculoskeletal: Present: other (no edema in BLE) Psychiatric: other (answers simple questions) Results - Lab Results 09/14/19 19:14 09/15/19 08:31 Most recent lab results Calcium 9.5 mg/dL (8.4-10.2) 09/14/19 19:14 Assessment and Plan Acute encephalopathy Acute kidney injury Blister of left foot Swelling of both lower extremities Hyponatremia, mild - baseline kidney function is unknown - urine lytes, protein and eos ordered - will d/c NSAIDs - OK with gentle diuresis for now - renally dose meds - strict I&O - daily weight Rober Landers MD [phone]
[2019-09-15 09:55] LABS: BUN/Creatinine Ratio 39; Blood Urea Nitrogen 39 mg/dL (7-17); Calcium 8.8 mg/dL (8.4-10.2); Hemolysis Index 2
[2019-09-15] MEDS: MEMANTINE 10 MG TAB PO SCH ×2 (10:00→23:13)
[2019-09-15] MEDS: DONEPEZIL 10 MG TAB PO SCH (10:00)
[2019-09-15] MEDS: traZODone 50 MG TAB PO SCH (10:00)
[2019-09-15] MEDS ORDERED: VALPROIC ACID PO SCH (12:00)
[2019-09-15] MEDS: risperiDONE 1 MG TAB PO SCH ×2 (12:00→23:13)
[2019-09-15] MEDS: VALPROIC ACID 250 MG/5 ML ORAL LIQD PO SCH ×2 (12:00→23:13)
[2019-09-15] MEDS ORDERED: NON-FORMULARY EACH (Risperidone [Risperdal] 2 MG) PO SCH (12:00)
[2019-09-15] MEDS: FERROUS SULFATE 325 MG TAB PO SCH (12:00)
[2019-09-15] MEDS: FUROSEMIDE 20 MG TAB PO SCH (13:08)
--- NOTE | 2019-09-15 14:18 | Event Note ---
Date: 09/15/19 Patient seen and examined discussed with sister at the bedside. Patient voluntarily quit walking a few weeks ago. Has been in [place] recently. Did sustain a fall recently. Left heel displays some ecchymotic lesion. Tender to touch anywhere in the foot up to the knee. Edema present but according to daughter this is improving compared to a recent hospitalization. Labs are reviewed renal function is improved. Will await wound care evaluation. Physical therapy occupational therapy has been consulted. Patient will definitely need to return to rehab facility for continued psych management and adjustment of medication.
--- NOTE | 2019-09-15 16:28 | Consultation ---
History of Present Illness Consult date: 09/15/19 Reason for Consult: Altered mental status Chief complaint: Altered mental status History of present illness: Patient is a 69 y/o woman w/ a h/o schizophrenia, bipolar d/o, HTN, anxiety, depression. She began to have a decline in cognition and overall health over the past 4-5 months. Patient was felt to be in adan at the time, and also was felt to have symptoms of dementia. She was initiated on memantine and aricept by her psychiatrist. Patient was admitted with b/l LE swelling. She was staying with her sister, who wanted her to be admitted for the LE swelling, which had developed recently. Her sister states that over the apst few months, she has had times where her mental status improved for days at a time. Past History Past Medical History: hypertension, stroke, other (Anxiety, schizophrenia, bipolar disorder, depression. ) Past Surgical History: appendectomy, Other (Tubal ligation, foot surgery in the past) Social history: other (Resides at [facility]) Family history: no significant family history Medications and Allergies Allergies Allergy/AdvReac Type Severity Reaction Status Date / Time lithium Allergy Hives Verified 09/12/19 17:21 Home Medications Medication Instructions Recorded Confirmed Last Taken Type Paliperidone Palmitate [Invega 156 QMONTH 07/30/19 07/30/19 07/15/19 History Sustenna] Trazodone HCl 50 mg PO QDAY 07/30/19 09/15/19 09/13/19 History Ibuprofen [Motrin 600 MG tab] 600 mg PO Q8H PRN #30 tablet 09/13/19 09/15/19 Unknown Rx Donepezil [Aricept] 10 mg PO QDAY 09/15/19 09/15/19 09/14/19 History Ferrous Sulfate [Ferrous Sulfate 1 tab PO DAILY 09/15/19 Unknown History 324 MG] Furosemide [Lasix] 20 mg PO QDAY 09/15/19 09/15/19 09/14/19 History Memantine [Namenda] 10 mg PO BID 09/15/19 09/15/19 09/13/19 History VALPROIC ACID Liq 10 ml PO BID 09/15/19 09/15/19 Unknown History risperiDONE [RisperDAL] 2 mg PO BID 09/15/19 09/15/19 Unknown History Active Meds: Active Medications Acetaminophen (Tylenol) 650 mg PO Q4H PRN PRN Reason: Pain MILD(1-3)/Fever >100.5/BONILLA Donepezil HCl (Aricept) 10 mg PO QDAY [facility] Last Admin: 09/15/19 10:00 Dose: 10 mg Documented by: Ferrous Sulfate (Feosol) 325 mg PO DAILY [facility] Last Admin: 09/15/19 12:00 Dose: 325 mg Documented by: Furosemide (Lasix) 20 mg PO QDAY [facility] Last Admin: 09/15/19 13:08 Dose: 20 mg Documented by: Heparin Sodium (Porcine) (Heparin) 5,000 unit SUB-Q Q8HR [facility] Last Admin: 09/15/19 14:00 Dose: 5,000 unit Documented by: Memantine (Memantine) 10 mg PO BID [facility] Last Admin: 09/15/19 10:00 Dose: 10 mg Documented by: Ondansetron HCl (Zofran) 4 mg IV Q8H PRN PRN Reason: Nausea And Vomiting Risperidone (Risperdal) 2 mg PO BID [facility] Last Admin: 09/15/19 12:00 Dose: 2 mg Documented by: Sodium Chloride (Sodium Chloride Flush Syringe 10 Ml) 10 ml IV BID [facility] Last Admin: 09/15/19 10:00 Dose: 10 ml Documented by: Sodium Chloride (Sodium Chloride Flush Syringe 10 Ml) 10 ml IV PRN PRN PRN Reason: LINE FLUSH Trazodone HCl (Desyrel) 50 mg PO QDAY [facility] Last Admin: 09/15/19 10:00 Dose: 50 mg Documented by: Valproic Acid (Depakene Liq) 500 mg PO BID [facility] Last Admin: 09/15/19 12:00 Dose: 500 mg Documented by: Review of Systems All systems: negative Musculoskeletal: other (ankle pain) Neurological: change in mentation Physical Examination - Vital Signs Vital Signs: Vital Signs Temp Pulse Resp BP Pulse Ox 97.7 F 108 H 16 119/70 97 09/14/19 16:02 09/14/19 16:02 09/14/19 16:02 09/14/19 16:02 09/14/19 16:02 - Physical Exam Narrative exam: Patient is awake, alert, oriented to self, , follows 2-step commands. No notable dysarthria or aphasia. PERRL, EOMI, VFF, b/l intact to LT, tongue midline, noted facial weakness. 5/5 in RUE/LUEE, 1/5 in LUE/LLE. B/l intact to LT. B/l intact to FTN. 2+ reflexes throughout. - Constitutional General appearance: comfortable - EENT EENT: Present: ATNC, PERRL, mucous membranes moist, hearing intact, vision intact - Respiratory Respiratory: Present: lungs clear, normal breath sounds - Cardiovascular Cardiovascular: Present: regular rate, normal S1, normal S2 Extremities: Present: no clubbing, cyanosis, no inflammation - Gastrointestinal Gastrointestinal: Present: normoactive bowel sounds, soft, non-tender - Integumentary Integumentary: Present: normal Results - Laboratory Findings CBC and BMP: 09/14/19 19:14 09/15/19 08:31 Abnormal Lab Findings: Abnormal Labs 09/14/19 09/14/19 12 19:14 19:14 08:31 MCH 27 L RDW 16.0 H Lymph % (Auto) 13.0 L [place] % (Auto) 10.3 H Lymph # 0.9 L Seg Neutrophils % 74.9 H Sodium 133 L Chloride 95.3 L Carbon Dioxide 20 L BUN 43 H 39 H Creatinine 1.5 H Glucose 105 H Albumin 3.1 L Assessment and Plan Patient is a 69 y/o woman w/ a h/o schizophrenia, bipolar d/o, HTN, anxiety, depression, who p/w b/l LE swelling, and progressive decline in overall mental status over the past 4-5 months. According to the patient's clinical findings, it is likely that she has had periods of change in mental status and functioning due to underlying psychiatric disorders, including bipolar d/o, schizophrenia, anxiety, and depression. Her sister notes that she felt the patient was depressed during this time period as well. It is less likely that she has a neurologic etiology of her symptoms, as her sister states that she has had periods of improvement in mental status over the past few months. Underlying dementia can not be ruled out entirely, however it is difficult to diagnose in the setting of these psychiatric disorders. Further, the patient initially had what was described as a manic episode at onset of these symptoms, with decrease in sleep and agitation. Plan: 1. Altered mental status: - Recommend psychiatry consult, as it is felt that the change in mental status has been ongoing for several months, and is more likely due to patient's chronic underlying psychiatric disorders. - Check B12 and Vitamin D levels - CT head: no acute abnormality - UA: no evidence of UTI. - Patient afebrile, without evidence of concurrent infection. 2. Possible dementia: - Cont. aricept and memantine. - Will continue to follow patient. Thank you for allowing me to take part in the care of this patient. Kahlil Phan MD Neurology
[2019-09-15 18:02] LABS: Bacteria,Urine 1+ /HPF (Negative); Bilirubin,Urine NEG (Negative); Blood,Urine NEG (Negative); Color,Urine Yellow (Yellow); Protein,Urine <15 mg/dL mg/dL (Negative)
[2019-09-15 18:05] LABS: Creatinine,Urine 125.8 mg/dL (0.1-20.0)
[2019-09-16] MEDS: HEPARIN 5,000 UNIT/1 ML VIAL SUB-Q SCH ×3 (05:12→22:44)
[2019-09-16] MEDS ORDERED: FERROUS SULFATE PO SCH (10:00)
[2019-09-16] MEDS: traZODone 50 MG TAB PO SCH (10:01)
[2019-09-16] MEDS: VALPROIC ACID 250 MG/5 ML ORAL LIQD PO SCH ×2 (10:01→22:45)
[2019-09-16] MEDS: FUROSEMIDE 20 MG TAB PO SCH (10:02)
[2019-09-16] MEDS: FERROUS SULFATE 325 MG TAB PO SCH (10:02)
[2019-09-16] MEDS: risperiDONE 1 MG TAB PO SCH ×2 (10:02→22:45)
[2019-09-16] MEDS: MEMANTINE 10 MG TAB PO SCH ×2 (10:02→22:45)
[2019-09-16] MEDS: DONEPEZIL 10 MG TAB PO SCH (10:02)
--- NOTE | 2019-09-16 11:41 | Progress Note ---
Assessment and Plan Acute encephalopathy Acute kidney injury Blister of left foot Swelling of both lower extremities Hyponatremia, mild - UVALDO resolved - renally dose meds - strict I&O - daily weight Will signs off, please re consult is needed. Rober Landers MD [phone] Subjective Date of service: 09/16/19 Objective - Vital Signs Vital signs: Vital Signs - 12hr 09/16/19 04:46 Temperature 97.9 F Pulse Rate 83 Respiratory 18 Rate Blood Pressure 100/51 O2 Sat by Pulse 99 Oximetry - Lab 09/14/19 19:14 09/15/19 08:31 Most recent lab results Calcium 8.8 mg/dL (8.4-10.2) 09/15/19 08:31 Urine Creatinine 125.8 mg/dL (0.1-20.0) H 09/15/19 Unknown Urine Sodium 27 mmol/L 09/15/19 Unknown Medications & Allergies - Medications Allergies/Adverse Reactions: Allergies lithium Allergy (Verified 09/12/19 17:21) Hives Home Medications: Home Medications Medication Instructions Recorded Confirmed Last Taken Type Paliperidone Palmitate [Invega 156 QMONTH 07/30/19 07/30/19 07/15/19 History Sustenna] Trazodone HCl 50 mg PO QDAY 07/30/19 09/15/19 09/13/19 History Ibuprofen [Motrin 600 MG tab] 600 mg PO Q8H PRN #30 tablet 09/13/19 09/15/19 Unknown Rx Donepezil [Aricept] 10 mg PO QDAY 09/15/19 09/15/19 09/14/19 History Ferrous Sulfate [Ferrous Sulfate 1 tab PO DAILY 09/15/19 Unknown History 324 MG] Furosemide [Lasix] 20 mg PO QDAY 09/15/19 09/15/19 09/14/19 History Memantine [Namenda] 10 mg PO BID 09/15/19 09/15/19 09/13/19 History VALPROIC ACID Liq 10 ml PO BID 09/15/19 09/15/19 Unknown History risperiDONE [RisperDAL] 2 mg PO BID 09/15/19 09/15/19 Unknown History Active Medications: Generic Name Dose Route Start Last Admin Trade Name Freq PRN Reason Stop Dose Admin Acetaminophen 650 mg 09/14/19 23:58 Tylenol PO Q4H PRN Pain MILD(1-3)/Fever >100.5/BONILLA Donepezil HCl 10 mg 09/15/19 10:00 09/16/19 10:02 Aricept PO 10 mg QDAY BERT Administration Ferrous Sulfate 325 mg 09/15/19 12:00 09/16/19 10:02 Feosol PO 325 mg DAILY BERT Administration Furosemide 20 mg 09/15/19 10:00 09/16/19 10:02 Lasix PO 20 mg QDAY BERT Administration Heparin Sodium (Porcine) 5,000 unit 09/15/19 06:00 09/16/19 05:12 Heparin SUB-Q 5,000 unit Q8HR BERT Administration Memantine 10 mg 09/15/19 10:00 09/16/19 10:02 Memantine PO 10 mg BID BERT Administration Ondansetron HCl 4 mg 09/14/19 23:58 Zofran IV Q8H PRN Nausea And Vomiting Risperidone 2 mg 09/15/19 12:00 09/16/19 10:02 Risperdal PO 2 mg BID BERT Administration Sodium Chloride 10 ml 09/15/19 10:00 09/16/19 10:01 Sodium Chloride Flush Syringe 10 Ml IV 10 ml BID BERT Administration Sodium Chloride 10 ml 09/14/19 23:58 Sodium Chloride Flush Syringe 10 Ml IV PRN PRN LINE FLUSH Trazodone HCl 50 mg 09/15/19 10:00 09/16/19 10:01 Desyrel PO 50 mg QDAY BERT Administration Valproic Acid 500 mg 09/15/19 12:00 09/16/19 10:01 Depakene Liq PO 500 mg BID BERT Administration
--- NOTE | 2019-09-16 11:43 | Progress Note ---
Assessment and Plan Patient is a 69 y/o woman w/ a h/o schizophrenia, bipolar d/o, HTN, anxiety, depression, who p/w b/l LE swelling, and progressive decline in overall mental status over the past 4-5 months. According to the patient's clinical findings, it is likely that she has had periods of change in mental status and functioning due to underlying psychiatric disorders, including bipolar d/o, schizophrenia, anxiety, and depression. Her sister notes that she felt the patient was depressed during this time period as well. It is less likely that she has a neurologic etiology of her symptoms, as her sister states that she has had periods of improvement in mental status over the past few months. Underlying dementia can not be ruled out entirely, however it is difficult to diagnose in the setting of these psychiatric disorders. Further, the patient initially had what was described as a manic episode at onset of these symptoms, with decrease in sleep and agitation. Plan: 1. Altered mental status: - Recommend psychiatry consult, as it is felt that the change in mental status has been ongoing for several months, and is more likely due to patient's chronic underlying psychiatric disorders. - Check B12 and Vitamin D levels. If levels decreased, will require to be replaced. - CT head: no acute abnormality - UA: no evidence of UTI. 2. Possible dementia: - Cont. aricept and memantine. - Recommend outpatient follow up with neurology in 3-4 weeks. - Will sign off. Please call with any questions. Thank you for allowing me to take part in the care of this patient. Kahlil Phan MD Neurology Subjective Date of service: 09/16/19 Interval history: No acute events overnight. Objective - Exam Narrative Exam: Patient is awake, alert, oriented to self, , follows 2-step commands. No notable dysarthria or aphasia. PERRL, EOMI, VFF, b/l intact to LT, tongue midline, noted facial weakness. 5/5 in RUE/LUE, 1/5 in RLE/LLE limited due to pain in knees and ankles. B/l intact to LT. B/l intact to FTN. 2+ reflexes throughout. - Vital Sign Vital Signs - 12hr 09/16/19 04:46 Temperature 97.9 F Pulse Rate 83 Respiratory 18 Rate Blood Pressure 100/51 O2 Sat by Pulse 99 Oximetry - General Apperance Constitutional: comfortable - EENT EENT: ATNC, PERRL, mucous membranes moist, hearing intact, vision intact - Respiratory Respiratory: lungs clear, normal breath sounds - Cardiovascular Cardiovascular: regular rate, normal S1, normal S2 Extremities: no clubbing, cyanosis, no inflammation - Gastrointestinal Gastrointestinal: normoactive bowel sounds, soft, non-tender - Musculoskeletal Musculoskeletal: pain in joint - Laboratory Findings CBC and BMP: 09/14/19 19:14 09/15/19 08:31 Abnormal Lab Findings: Abnormal Labs 09/14/19 09/14/19 09/15/19 19:14 19:14 08:31 MCH 27 L RDW 16.0 H Lymph % (Auto) 13.0 L [place] % (Auto) 10.3 H Lymph # 0.9 L Seg Neutrophils % 74.9 H Sodium 133 L Chloride 95.3 L Carbon Dioxide 20 L BUN 43 H 39 H Creatinine 1.5 H Glucose 105 H Albumin 3.1 L Urine Creatinine 09/15/19 Unknown MCH RDW Lymph % (Auto) [place] % (Auto) Lymph # Seg Neutrophils % Sodium Chloride Carbon Dioxide BUN Creatinine Glucose Albumin Urine Creatinine 125.8 H
--- NOTE | 2019-09-16 15:44 | Progress Note ---
Assessment and Plan Assessment and plan: Patient is a 69-year-old female with known history of bipolar disorder, schizophrenia, hypertension resident of [facility] presenting to the emergency room today with complaint of lower extremity pain and swelling. Patient has also been noticed to be more confused today and was brought into the emergency room for further evaluation. According to family members patient has become progressively more confused lately and has not been able to ambulate very well. She is also said to have developed some blisters on her lower extremities. Patient is said to have had multiple falls. There has been no history of head injury. There has been no history of fever or chills, no nausea vomiting, no chest pain or shortness of breath. 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 Plan discussed with family Pysch consult placed for medication management History Interval history: Patient seen and examined today family at bedside reports some mild improvement in the coldness of the patient and also tenderness to the lower extremity. Hospitalist Physical - Physical exam Narrative exam: VITAL SIGNS: Reviewed. GENERAL: The patient appears normally developed, Vital signs as documented. HEAD: No signs of head trauma. EYES: Pupils are equal. Extraocular motions intact. EARS: Hearing grossly intact. MOUTH: Oropharynx is normal. NECK: No adenopathy, no JVD. CHEST: Chest with clear breath sounds bilaterally. No wheezes, rales, or rhonchi. CARDIAC: Regular rate and rhythm. S1 and S2, without murmurs, gallops, or rubs. VASCULAR: Positive edema. Peripheral pulses normal and equal in all extremities . ABDOMEN: Soft, non tender and non distended. No rebound or guarding, and no masses palpated. Bowel Sounds normal. MUSCULOSKELETAL: Unable to assess as patient is not willing to move her legs she screams for pain and palpation of the lower extremities.. Extremities without clubbing, cyanosis. +1 pitting edema bilaterally worse on the left. NEUROLOGIC EXAM: Alert and oriented x 2 No focal sensory or strength deficits. Speech normal. Follows commands. PSYCHIATRIC: Mood flat . SKIN: detail exam as documented in skin assessment - Constitutional Vitals: Temp Pulse Resp BP Pulse Ox 97.6 F 86 20 113/62 96 09/16/19 12:16 09/16/19 12:16 09/16/19 12:16 09/16/19 12:16 09/16/19 12:16 General appearance: Present: no acute distress, well-nourished Results - Labs CBC & Chem 7: 09/14/19 19:14 09/15/19 08:31 Labs: Laboratory Last Values WBC 6.9 K/mm3 (4.5-11.0) 09/14/19 19:14 RBC 3.97 M/mm3 (3.65-5.03) 09/14/19 19:14 Hgb 10.8 gm/dl (10.1-14.3) 09/14/19 19:14 Hct 34.1 % (30.3-42.9) 09/14/19 19:14 MCV 86 fl (79-97) 09/14/19 19:14 MCH 27 pg (28-32) L 09/14/19 19:14 MCHC 32 % (30-34) 09/14/19 19:14 RDW 16.0 % (13.2-15.2) H 09/14/19 19:14 Plt Count 309 K/mm3 (140-440) 09/14/19 19:14 Lymph % (Auto) 13.0 % (13.4-35.0) L 09/14/19 19:14 [place] % (Auto) 10.3 % (0.0-7.3) H 09/14/19 19:14 Eos % (Auto) 1.2 % (0.0-4.3) 09/14/19 19:14 Baso % (Auto) 0.6 % (0.0-1.8) 09/14/19 19:14 Lymph # 0.9 K/mm3 (1.2-5.4) L 09/14/19 19:14 [place] # 0.7 K/mm3 (0.0-0.8) 09/14/19 19:14 Eos # 0.1 K/mm3 (0.0-0.4) 09/14/19 19:14 Baso # 0.0 K/mm3 (0.0-0.1) 09/14/19 19:14 Seg Neutrophils % 74.9 % (40.0-70.0) H 09/14/19 19:14 Seg Neutrophils # 5.1 K/mm3 (1.8-7.7) 09/14/19 19:14 Sodium 137 mmol/L (137-145) 09/15/19 08:31 Potassium 4.3 mmol/L (3.6-5.0) 09/15/19 08:31 Chloride 99.0 mmol/L (98-107) 09/15/19 08:31 Carbon Dioxide 23 mmol/L (22-30) 09/15/19 08:31 Anion Gap 19 mmol/L 09/15/19 08:31 BUN 39 mg/dL (7-17) H 09/15/19 08:31 Creatinine 1.0 mg/dL (0.7-1.2) 09/15/19 08:31 Estimated GFR > 60 ml/min 09/15/19 08:31 BUN/Creatinine Ratio 39 % 09/15/19 08:31 Glucose 81 mg/dL (65-100) 09/15/19 08:31 Calcium 8.8 mg/dL (8.4-10.2) 09/15/19 08:31 Total Bilirubin 0.40 mg/dL (0.1-1.2) 09/14/19 19:14 AST 17 units/L (5-40) 09/14/19 19:14 ALT 15 units/L (7-56) 09/14/19 19:14 Alkaline Phosphatase 58 units/L (35-129) 09/14/19 19:14 Troponin T < 0.010 ng/mL (0.00-0.029) 09/14/19 19:14 NT-Pro-B Natriuret Pep 128.1 pg/mL (0-900) 09/14/19 19:14 Total Protein 7.4 g/dL (6.3-8.2) 09/14/19 19:14 Albumin 3.1 g/dL (3.9-5) L 09/14/19 19:14 Albumin/Globulin Ratio 0.7 % 09/14/19 19:14 Urine Color Yellow (Yellow) 09/15/19 Unknown Urine Turbidity Clear (Clear) 09/15/19 Unknown Urine pH 5.0 (5.0-7.0) 09/15/19 Unknown Ur Specific [place] 1.014 (1.003-1.030) 09/15/19 Unknown Urine Protein <15 mg/dl mg/dL (Negative) 09/15/19 Unknown Urine Glucose (UA) Neg mg/dL (Negative) 09/15/19 Unknown Urine Ketones Neg mg/dL (Negative) 09/15/19 Unknown Urine Blood Neg (Negative) 09/15/19 Unknown Urine Nitrite Neg (Negative) 09/15/19 Unknown Urine Bilirubin Neg (Negative) 09/15/19 Unknown Urine Urobilinogen 2.0 mg/dL (<2.0) 09/15/19 Unknown Ur Leukocyte Esterase Neg (Negative) 09/15/19 Unknown Urine WBC (Auto) 1.0 /HPF (0.0-6.0) 09/15/19 Unknown Urine RBC (Auto) 2.0 /HPF (0.0-6.0) 09/15/19 Unknown U Epithel Cells (Auto) < 1.0 /HPF (0-13.0) 09/15/19 Unknown Urine Bacteria (Auto) 1+ /HPF (Negative) 09/15/19 Unknown Hyaline Casts 4 /LPF 09/14/19 20:00 Urine Mucus Few /HPF 09/14/19 20:00 Urine Eosinophils None seen (None Seen) 09/15/19 Unknown Urine Creatinine 125.8 mg/dL (0.1-20.0) H 09/15/19 Unknown Urine Sodium 27 mmol/L 09/15/19 Unknown Valproic Acid 65.1 ug/mL (50-100) 09/14/19 23:13 [place] 0.1 mmol/L (0.0-1.2) 09/14/19 19:14 Active Medications - Current Medications Current Medications: Generic Name Dose Route Start Last Admin Trade Name Freq PRN Reason Stop Dose Admin Acetaminophen 650 mg 09/14/19 23:58 Tylenol PO Q4H PRN Pain MILD(1-3)/Fever >100.5/BONILLA Donepezil HCl 10 mg 09/15/19 10:00 09/16/19 10:02 Aricept PO 10 mg QDAY BERT Administration Ferrous Sulfate 325 mg 09/15/19 12:00 09/16/19 10:02 Feosol PO 325 mg DAILY BERT Administration Furosemide 20 mg 09/15/19 10:00 09/16/19 10:02 Lasix PO 20 mg QDAY BERT Administration Heparin Sodium (Porcine) 5,000 unit 09/15/19 06:00 09/16/19 13:41 Heparin SUB-Q 5,000 unit Q8HR BERT Administration Memantine 10 mg 09/15/19 10:00 09/16/19 10:02 Memantine PO 10 mg BID BERT Administration Ondansetron HCl 4 mg 09/14/19 23:58 Zofran IV Q8H PRN Nausea And Vomiting Risperidone 2 mg 09/15/19 12:00 09/16/19 10:02 Risperdal PO 2 mg BID BERT Administration Sodium Chloride 10 ml 09/15/19 10:00 09/16/19 10:01 Sodium Chloride Flush Syringe 10 Ml IV 10 ml BID BERT Administration Sodium Chloride 10 ml 09/14/19 23:58 Sodium Chloride Flush Syringe 10 Ml IV PRN PRN LINE FLUSH Trazodone HCl 50 mg 09/15/19 10:00 09/16/19 10:01 Desyrel PO 50 mg QDAY BERT Administration Valproic Acid 500 mg 09/15/19 12:00 09/16/19 10:01 Depakene Liq PO 500 mg BID BERT Administration
[2019-09-17] MEDS: HEPARIN 5,000 UNIT/1 ML VIAL SUB-Q SCH ×3 (05:37→22:34)
[2019-09-17] MEDS: FUROSEMIDE 20 MG TAB PO SCH (10:31)
[2019-09-17] MEDS: FERROUS SULFATE 325 MG TAB PO SCH (10:31)
[2019-09-17] MEDS: DONEPEZIL 10 MG TAB PO SCH (10:31)
[2019-09-17] MEDS: MEMANTINE 10 MG TAB PO SCH ×2 (10:31→22:28)
[2019-09-17] MEDS: traZODone 50 MG TAB PO SCH (10:31)
[2019-09-17] MEDS: risperiDONE 1 MG TAB PO SCH (10:32)
[2019-09-17] MEDS: VALPROIC ACID 250 MG/5 ML ORAL LIQD PO SCH ×2 (10:32→10:41)
--- NOTE | 2019-09-17 12:49 | Consultation ---
History of Present Illness - Reason for Consult Consult date: 09/17/19 Reason for consult: [facility] assessment and management - Chief Complaint Chief complaint: Altered mental status - History of Present Psychiatric Illness Medical chart reviewed and patient status discussed with nursing staff. Nursing note states patient lying in bed. A & O to self only. Confused and unable to respond to simple questions appropriately. Mumbles and babbles periodically. In my interview with the patient, he is lying in bed. Awake. Sister at bedside. The patient is confused and is hard to follow. She says there is "buzzing in and out all around her head." Her daughter says she's referring to the nursing staff. Mrs. Sung replied "blessed and highly favored from the Lord," when asked how she was doing. She later stated she was "agitated." She is babbling and at times repeating what is being asked of her. When asked about mood, the patient replied "it varies. I'm cool." She denies SI/HI, but verbalizes hearing voices that say "all kinds of things. But I'm not crazy." The sister says Mrs. Sung has been a lot more agitated, appears to be talking to someone, not sleeping, and in a "stiff motion and unable to walk." She says the patient stopped taking her meds a few months ago and has been appearing manic. The patient repeated some of what her sister stated. The patient says she slept good, when asked. 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 Dressed appropriately Cooperation: somewhat cooperative Psychomotor Behavior: within normal limits Mood: Irritable Affect and affective range: Congruent with stated mood Thought Process: Circumstantial Thought Content: Auditory Hallucinations Speech: Babbles Intellectual Functioning Unable to assess Suicidal Ideation: Denies Homicidal Ideation: Denies HI Impulse Control: Intact Insight and Judgment: Poor Memory: Fair Attention: Inability to focus Orientation: to person Asessment Schizophrenia, catatonic type Bipolar, current episode adan, with psychotic features RECOMMENDATIONS MEDICATIONS: See orders Risks, benefits and alternatives of medications discussed with the patient, questions answered and consent obtained from patient. PSYCHOTHERAPY: Supportive psychotherapy provided MEDICAL: Per primary team DELIRIUM PRECAUTIONS: Please re-orient patient frequently, keep lights on during the day, and minimize benzodiazepines and opiates as these medications could worsen patient's confusion. LINE SUPERVISOR: Defer to primary team DISPOSITION: Acute inpatient psychiatric hospitalization when medically stable LEGAL STATUS: Voluntary FOLLOW-UP: Will follow I have reviewed this treatment plan, including potential risks and benefits of medications, with the patient and/or family members and relevant hospital providers. Please contact with any questions and/or concerns. Thank you for this consult Medications and Allergies Allergies Allergy/AdvReac Type Severity Reaction Status Date / Time lithium Allergy Hives Verified 09/12/19 17:21 Home Medications Medication Instructions Recorded Confirmed Last Taken Type Paliperidone Palmitate [Invega 156 QMONTH 07/30/19 07/30/19 09/05/19 History Sustenna] Trazodone HCl 50 mg PO QDAY 07/30/19 09/15/19 09/13/19 History Ibuprofen [Motrin 600 MG tab] 600 mg PO Q8H PRN #30 tablet 09/13/19 09/15/19 Unknown Rx Donepezil [Aricept] 10 mg PO QDAY 09/15/19 09/15/19 09/14/19 History Ferrous Sulfate [Ferrous Sulfate 1 tab PO DAILY 09/15/19 Unknown History 324 MG] Furosemide [Lasix] 20 mg PO QDAY 09/15/19 09/15/19 09/14/19 History Memantine [Namenda] 10 mg PO BID 09/15/19 09/15/19 09/13/19 History VALPROIC ACID Liq 10 ml PO BID 09/15/19 09/15/19 Unknown History Active Meds: Active Medications Acetaminophen (Tylenol) 650 mg PO Q4H PRN PRN Reason: Pain MILD(1-3)/Fever >100.5/BONILLA Donepezil HCl (Aricept) 10 mg PO QDAY [facility] Last Admin: 09/17/19 10:31 Dose: 10 mg Documented by: Ferrous Sulfate (Feosol) 325 mg PO DAILY [facility] Last Admin: 09/17/19 10:31 Dose: 325 mg Documented by: Furosemide (Lasix) 20 mg PO QDAY [facility] Last Admin: 09/17/19 10:31 Dose: 20 mg Documented by: Heparin Sodium (Porcine) (Heparin) 5,000 unit SUB-Q Q8HR [facility] Last Admin: 09/17/19 05:37 Dose: 5,000 unit Documented by: Memantine (Memantine) 10 mg PO BID [facility] Last Admin: 09/17/19 10:31 Dose: 10 mg Documented by: Ondansetron HCl (Zofran) 4 mg IV Q8H PRN PRN Reason: Nausea And Vomiting Risperidone (Risperdal) 2 mg PO BID [facility] Last Admin: 09/17/19 10:32 Dose: Not Given Documented by: Sodium Chloride (Sodium Chloride Flush Syringe 10 Ml) 10 ml IV BID [facility] Last Admin: 09/17/19 10:32 Dose: 10 ml Documented by: Sodium Chloride (Sodium Chloride Flush Syringe 10 Ml) 10 ml IV PRN PRN PRN Reason: LINE FLUSH Trazodone HCl (Desyrel) 50 mg PO QDAY [facility] Last Admin: 09/17/19 10:31 Dose: 50 mg Documented by: Valproic Acid (Depakene Liq) 500 mg PO BID [facility] Last Admin: 09/17/19 10:41 Dose: Not Given Documented by: Mental Status Exam - Vital signs Last Vital Signs Temp 98.2 F 09/17/19 04:33 Pulse 88 09/17/19 04:33 Resp 18 09/17/19 04:33 BP 120/69 09/17/19 04:33 Pulse Ox 96 09/17/19 04:33 Results Result Diagrams: 09/14/19 19:14 09/15/19 08:31 All other labs normal.
--- NOTE | 2019-09-17 13:20 | Progress Note ---
Assessment and Plan Assessment and plan: Patient is a 69-year-old female with known history of bipolar disorder, schizophrenia, hypertension resident of [facility] presenting to the emergency room today with complaint of lower extremity pain and swelling. Patient has also been noticed to be more confused today and was brought into the emergency room for further evaluation. According to family members patient has become progressively more confused lately and has not been able to ambulate very well. She is also said to have developed some blisters on her lower extremities. Patient is said to have had multiple falls. There has been no history of head injury. There has been no history of fever or chills, no nausea vomiting, no chest pain or shortness of breath. 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 Plan discussed with family Pysch consult placed for medication management Patient medically stable for placement in acute inpatient psych History Interval history: Patient seen and examined today family at bedside more alert today and conversant Hospitalist Physical - Physical exam Narrative exam: VITAL SIGNS: Reviewed. GENERAL: The patient appears normally developed, Vital signs as documented. HEAD: No signs of head trauma. EYES: Pupils are equal. Extraocular motions intact. EARS: Hearing grossly intact. MOUTH: Oropharynx is normal. NECK: No adenopathy, no JVD. CHEST: Chest with clear breath sounds bilaterally. No wheezes, rales, or rhonchi. CARDIAC: Regular rate and rhythm. S1 and S2, without murmurs, gallops, or rubs. VASCULAR: No edema. Peripheral pulses normal and equal in all extremities. ABDOMEN: Soft, non tender and non distended. No rebound or guarding, and no masses palpated. Bowel Sounds normal. MUSCULOSKELETAL: Unable to assess as patient is not willing to move her legs she screams for pain and palpation of the lower extremities.. Extremities without clubbing, cyanosis. No edema bilaterally worse on the left. NEUROLOGIC EXAM: Alert and oriented x 2 No focal sensory or strength de ficits. Speech normal. Follows commands. PSYCHIATRIC: Mood flat . SKIN: detail exam as documented in skin assessment - Constitutional Vitals: Temp Pulse Resp BP Pulse Ox 98.2 F 88 18 120/69 96 09/17/19 04:33 09/17/19 04:33 09/17/19 04:33 09/17/19 04:33 09/17/19 04:33 General appearance: Present: no acute distress, well-nourished Results - Labs CBC & Chem 7: 09/14/19 19:14 09/15/19 08:31 Labs: Laboratory Last Values WBC 6.9 K/mm3 (4.5-11.0) 09/14/19 19:14 RBC 3.97 M/mm3 (3.65-5.03) 09/14/19 19:14 Hgb 10.8 gm/dl (10.1-14.3) 09/14/19 19:14 Hct 34.1 % (30.3-42.9) 09/14/19 19:14 MCV 86 fl (79-97) 09/14/19 19:14 MCH 27 pg (28-32) L 09/14/19 19:14 MCHC 32 % (30-34) 09/14/19 19:14 RDW 16.0 % (13.2-15.2) H 09/14/19 19:14 Plt Count 309 K/mm3 (140-440) 09/14/19 19:14 Lymph % (Auto) 13.0 % (13.4-35.0) L 09/14/19 19:14 [place] % (Auto) 10.3 % (0.0-7.3) H 09/14/19 19:14 Eos % (Auto) 1.2 % (0.0-4.3) 09/14/19 19:14 Baso % (Auto) 0.6 % (0.0-1.8) 09/14/19 19:14 Lymph # 0.9 K/mm3 (1.2-5.4) L 09/14/19 19:14 [place] # 0.7 K/mm3 (0.0-0.8) 09/14/19 19:14 Eos # 0.1 K/mm3 (0.0-0.4) 09/14/19 19:14 Baso # 0.0 K/mm3 (0.0-0.1) 09/14/19 19:14 Seg Neutrophils % 74.9 % (40.0-70.0) H 09/14/19 19:14 Seg Neutrophils # 5.1 K/mm3 (1.8-7.7) 09/14/19 19:14 Sodium 137 mmol/L (137-145) 09/15/19 08:31 Potassium 4.3 mmol/L (3.6-5.0) 09/15/19 08:31 Chloride 99.0 mmol/L (98-107) 09/15/19 08:31 Carbon Dioxide 23 mmol/L (22-30) 09/15/19 08:31 Anion Gap 19 mmol/L 09/15/19 08:31 BUN 39 mg/dL (7-17) H 09/15/19 08:31 Creatinine 1.0 mg/dL (0.7-1.2) 09/15/19 08:31 Estimated GFR > 60 ml/min 09/15/19 08:31 BUN/Creatinine Ratio 39 % 09/15/19 08:31 Glucose 81 mg/dL (65-100) 09/15/19 08:31 Calcium 8.8 mg/dL (8.4-10.2) 09/15/19 08:31 Total Bilirubin 0.40 mg/dL (0.1-1.2) 09/14/19 19:14 AST 17 units/L (5-40) 09/14/19 19:14 ALT 15 units/L (7-56) 09/14/19 19:14 Alkaline Phosphatase 58 units/L (35-129) 09/14/19 19:14 Troponin T < 0.010 ng/mL (0.00-0.029) 09/14/19 19:14 NT-Pro-B Natriuret Pep 128.1 pg/mL (0-900) 09/14/19 19:14 Total Protein 7.4 g/dL (6.3-8.2) 09/14/19 19:14 Albumin 3.1 g/dL (3.9-5) L 09/14/19 19:14 Albumin/Globulin Ratio 0.7 % 09/14/19 19:14 Urine Color Yellow (Yellow) 09/15/19 Unknown Urine Turbidity Clear (Clear) 09/15/19 Unknown Urine pH 5.0 (5.0-7.0) 09/15/19 Unknown Ur Specific [place] 1.014 (1.003-1.030) 09/15/19 Unknown Urine Protein <15 mg/dl mg/dL (Negative) 09/15/19 Unknown Urine Glucose (UA) Neg mg/dL (Negative) 09/15/19 Unknown Urine Ketones Neg mg/dL (Negative) 09/15/19 Unknown Urine Blood Neg (Negative) 09/15/19 Unknown Urine Nitrite Neg (Negative) 09/15/19 Unknown Urine Bilirubin Neg (Negative) 09/15/19 Unknown Urine Urobilinogen 2.0 mg/dL (<2.0) 09/15/19 Unknown Ur Leukocyte Esterase Neg (Negative) 09/15/19 Unknown Urine WBC (Auto) 1.0 /HPF (0.0-6.0) 09/15/19 Unknown Urine RBC (Auto) 2.0 /HPF (0.0-6.0) 09/15/19 Unknown U Epithel Cells (Auto) < 1.0 /HPF (0-13.0) 09/15/19 Unknown Urine Bacteria (Auto) 1+ /HPF (Negative) 09/15/19 Unknown Hyaline Casts 4 /LPF 09/14/19 20:00 Urine Mucus Few /HPF 09/14/19 20:00 Urine Eosinophils None seen (None Seen) 09/15/19 Unknown Urine Creatinine 125.8 mg/dL (0.1-20.0) H 09/15/19 Unknown Urine Sodium 27 mmol/L 09/15/19 Unknown Valproic Acid 65.1 ug/mL (50-100) 09/14/19 23:13 [place] 0.1 mmol/L (0.0-1.2) 09/14/19 19:14 Active Medications - Current Medications Current Medications: Generic Name Dose Route Start Last Admin Trade Name Freq PRN Reason Stop Dose Admin Acetaminophen 650 mg 09/14/19 23:58 Tylenol PO Q4H PRN Pain MILD(1-3)/Fever >100.5/BONILLA Donepezil HCl 10 mg 09/15/19 10:00 09/17/19 10:31 Aricept PO 10 mg QDAY BERT Administration Ferrous Sulfate 325 mg 09/15/19 12:00 09/17/19 10:31 Feosol PO 325 mg DAILY BERT Administration Furosemide 20 mg 09/15/19 10:00 09/17/19 10:31 Lasix PO 20 mg QDAY BERT Administration Heparin Sodium (Porcine) 5,000 unit 09/15/19 06:00 12/18/19 13:02 Heparin SUB-Q 5,000 unit Q8HR BERT Administration Memantine 10 mg 09/15/19 10:00 09/17/19 10:31 Memantine PO 10 mg BID BERT Administration Ondansetron HCl 4 mg 09/14/19 23:58 Zofran IV Q8H PRN Nausea And Vomiting Sodium Chloride 10 ml 09/15/19 10:00 09/17/19 10:32 Sodium Chloride Flush Syringe 10 Ml IV 10 ml BID BERT Administration Sodium Chloride 10 ml 09/14/19 23:58 Sodium Chloride Flush Syringe 10 Ml IV PRN PRN LINE FLUSH Trazodone HCl 50 mg 09/15/19 10:00 09/17/19 10:31 Desyrel PO 50 mg QDAY BERT Administration
[2019-09-17] MEDS ORDERED: HALOPERIDOL LACTATE 5 MG/1 ML INJ IM PRN (13:23)
--- NOTE | 2019-09-17 13:24 | Discharge Summary ---
Providers - Providers Date of Admission: 09/15/19 00:04 Attending physician: MIKHAIL HOU MD 09/15/19 00:24 Consult to Physician [CONS] Routine Comment: Consulting Provider: MAME RIVAS Physician Instructions: Reason For Exam: UVALDO 09/15/19 05:00 Consult to Wound/ET Nurse [CONS] Routine Reason For Exam: wound eval bilateral heel decub. 09/15/19 05:01 Consult to Physician [CONS] Routine Comment: Consulting Provider: CECIL WILLOUGHBY Physician Instructions: Reason For Exam: confusion, inability to ambulate 09/15/19 08:12 Occupational Therapy Evaluate and Treat [CONS] Routine Comment: Reason For Exam: ataxia Physical Therapy Evaluation and Treat [CONS] Routine Comment: Reason For Exam: ataxia 09/16/19 08:19 Consult to Mental Health [CONS] Routine Reason For Exam: schizophrenia, medication adjustment Place consult to:: mental health Notified:: j Primary care physician: JANETH KANG Hospitalization Reason for admission: schizophrenia Condition: Stable Hospital course: Patient is a 69-year-old female with known history of bipolar disorder, schizophrenia, hypertension resident of [facility] presenting to the emergency room today with complaint of lower extremity pain and swelling. Patient has also been noticed to be more confused today and was brought into the emergency room for further evaluation. According to family members patient has become progressively more confused lately and has not been able to ambulate very well. She is also said to have developed some blisters on her lower extremities. Patient is said to have had multiple falls. There has been no history of head injury. There has been no history of fever or chills, no nausea vomiting, no chest pain or shortness of breath. 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 GENERAL: The patient appears normally developed, Vital signs as documented. HEAD: No signs of head trauma. EYES: Pupils are equal. Extraocular motions intact. EARS: Hearing grossly intact. MOUTH: Oropharynx is normal. NECK: No adenopathy, no JVD. CHEST: Chest with clear breath sounds bilaterally. No wheezes, rales, or r honchi. CARDIAC: Regular rate and rhythm. S1 and S2, without murmurs, gallops, or rubs. VASCULAR: No edema. Peripheral pulses normal and equal in all extremities. ABDOMEN: Soft, non tender and non distended. No rebound or guarding, and no masses palpated. Bowel Sounds normal. MUSCULOSKELETAL: Unable to assess as patient is not willing to move her legs she screams for pain and palpation of the lower extremities.. Extremities without clubbing, cyanosis. No edema bilaterally worse on the left. NEUROLOGIC EXAM: Alert and oriented x 2 No focal sensory or strength deficits. Speech normal. Follows commands. PSYCHIATRIC: Mood flat . SKIN: detail exam as documented in skin assessment - Constitutional Vitals: Temp Pulse Resp BP Pulse Ox 98.2 F 88 18 120/69 96 09/17/19 04:33 09/17/19 04:33 09/17/19 04:33 09/17/19 04:33 09/17/19 04:33 Plan Activity: advance as tolerated, fall precautions Diet: low fat Special Instructions: record daily weights, record daily BP diary Follow up with: RORO HARVEY, ISABELA-C [Primary Care Provider] - 3-5 Days
[2019-09-17 15:27] LABS: Basophils % (Auto) 0.8 % (0.0-1.8); Eosinophils # (Auto) 0.1 K/mm3 (0.0-0.4); Eosinophils % (Auto) 3.9 % (0.0-4.3); Hemoglobin 9.6 gm/dl (10.1-14.3); Lymphocytes # (Auto) 0.9 K/mm3 (1.2-5.4); Mean Corpuscular HGB Conc 34 % (30-34); Mean Corpuscular Volume 83 fl (79-97); Monocytes # (Auto) 0.4 K/mm3 (0.0-0.8); Monocytes % (Auto) 14.2 % (0.0-7.3); Platelet Count 287 K/mm3 (140-440); Red Blood Count 3.37 M/mm3 (3.65-5.03); Red Cell Distribution Width 16.1 % (13.2-15.2)
[2019-09-17 15:31] LABS: BUN/Creatinine Ratio 33; Blood Urea Nitrogen 20 mg/dL (7-17); Calcium 8.8 mg/dL (8.4-10.2); Hemolysis Index 3
[2019-09-17 15:35] LABS: INR 1.08 (0.87-1.13)
[2019-09-17 15:36] LABS: Partial Thromboplastin Time 29.2 Sec. (24.2-36.6)
[2019-09-17] MEDS: ARIPiprazole 5 MG TAB PO SCH (16:13)
[2019-09-17] MEDS: lamoTRIgine 25 MG TAB PO SCH (22:27)
[2019-09-18 05:36] LABS: BUN/Creatinine Ratio 27; Blood Urea Nitrogen 19 mg/dL (7-17); Hemolysis Index 3
[2019-09-18] MEDS: HEPARIN 5,000 UNIT/1 ML VIAL SUB-Q SCH ×3 (05:46→22:46)
[2019-09-18] MEDS: FUROSEMIDE 20 MG TAB PO SCH (10:02)
[2019-09-18] MEDS: traZODone 50 MG TAB PO SCH (10:02)
[2019-09-18] MEDS: MEMANTINE 10 MG TAB PO SCH ×2 (10:02→22:45)
[2019-09-18] MEDS: lamoTRIgine 25 MG TAB PO SCH ×2 (10:02→22:45)
[2019-09-18] MEDS: ARIPiprazole 5 MG TAB PO SCH (10:02)
[2019-09-18] MEDS: FERROUS SULFATE 325 MG TAB PO SCH (10:02)
[2019-09-18] MEDS: DONEPEZIL 10 MG TAB PO SCH (10:03)
--- NOTE | 2019-09-18 13:37 | Progress Note ---
Subjective - Reason for Consult Consult date: 09/18/19 Reason for consult: Manage mental health - Chief Complaint Chief complaint: interviewed the patient this morning. Medical records reviewed and patient's progress was discussed with unit staff. Nursing staff reports the patient is easily aroused, oriented to self only, confused , mumbles at times. In my interview with the patient this morning, the patient she was sitting up in bed eating. She says she's "doing good." She is confused. She denies SI/HI at the time. The patient says she hears voices telling her "ho-ho Merry Jackeline and Happy Easter." She begins to sing and repeats "happy Easter" several times and then starts singing during the interview. She also says she has visions and dreams about "sugar pies and honey buns." She says she sees them when she's awake. Mrs. Sung says her appetite is good. Review of Symptoms: Constitutional: Negative for weight loss ENT: Negative for stridor Respiratory: Negative for cough or hemoptysis All other systems reviewed and are negative MSE Appearance: Wearing appropriate clothing. Good hygiene Behavior: Inconsistent, calm Mood: "doing good" Affect: Congruent with stated mood Thought Process: Inconsistent Speech: Normal rate. Thought Content Harmfulness Denies SI/HI Hallucinations: A/V hallucinations Delusions: none elicited Consciousness: alert. Cognition/Memory: Poor Insight/Judgment: Limited. Treatment Plan Due to the psychiatric conditions and treatment listed in the Assessment and Plan - the patient requires continued hospitalization. Will continue inpatient treatment to allow for medication adjustment and monitoring. Will continue q15 min safety checks. Will encourage the use of environmental modifications and non-pharmacologic approaches for the management of behavioral and psychological symptoms. Will continue current psych medications Monitor for medication side effects. The patient will continue on medications for physical illnesses, and Hospitalist will closely monitor these Continue intensive physical and occupational therapies. Monitor patient's mood, sleep, appetite, and behavior closely. Encourage patient to participate in individual and group therapeutic sessions on the hood. Will provide a safe and therapeutic environment for patient. Mental Status Exam - Vital signs Last Vital Signs Temp 98.4 F 09/18/19 12:10 Pulse 87 09/18/19 12:10 Resp 20 09/18/19 12:10 BP 125/76 09/18/19 12:10 Pulse Ox 92 09/18/19 12:10
[2019-09-19] MEDS: HEPARIN 5,000 UNIT/1 ML VIAL SUB-Q SCH (06:35)
[2019-09-19 06:57] VITALS: BP 108/65
[2019-09-19 09:10] LABS: BUN/Creatinine Ratio 24; Blood Urea Nitrogen 17 mg/dL (7-17); Calcium 9.4 mg/dL (8.4-10.2); Hemolysis Index 2
[2019-09-22 13:46] LABS: Vitamin D, 25-OH, D2 <4 ng/mL
== END 2019-09-19 08:35 | DRG 683 ==
LOC: ED 15:43 → 4A 09-15 00:04 → 3A 09-15 00:40
PROVIDERS: ADMIT Internal Medicine Geriatric Medicine; ATTEND Internal Medicine
DX: N17.0 Acute kidney failure with tubular necrosis (principal); E87.1 Hypo-osmolality and hyponatremia; G93.40 Encephalopathy, unspecified; F03.90 Unspecified dementia, unspecified severity, without behavioral disturbance, psychotic disturbance, mood disturbance, and anxiety; S90.822A Blister (nonthermal), left foot, initial encounter; M79.89 Other specified soft tissue disorders; F20.9 Schizophrenia, unspecified; F31.9 Bipolar disorder, unspecified; I10 Essential (primary) hypertension; F41.9 Anxiety disorder, unspecified; Z86.73 Personal history of transient ischemic attack (TIA), and cerebral infarction without residual deficits; Z79.899 Other long term (current) drug therapy; Z90.49 Acquired absence of other specified parts of digestive tract; Z98.51 Tubal ligation status; Y93.89 Activity, other specified; Y92.89 Other specified places as the place of occurrence of the external cause; Y99.8 Other external cause status
CPT/HCPCS: 36415; 70450; 71045; 80048; 80053; 80164; 80178; 81001; 82306; 82570; 82607; 82962; 83880; 84300; 84484; 85025; 85610; 85730; 87040; 87116; 89050; 93005; 93010; 93970; G0378; J1644; J7040

== ENCOUNTER 2019-09-18 09:18 | Inpatient (IN) | payer MEDICARE ==
--- NOTE | 2019-09-19 12:43 | History and Physical Report ---
<JOBY MOODY - Last Filed: 09/19/19 15:06> GP History & Physical - History of Present Illness Date of admission: 09/19/19 Date of Examination: 09/19/19 Reason for Admission: Danger to others, Severe anxiety/depression History of Present Illness: Client is a 69-year-old -[place] female. Client noted in bed with eyes closed. Client is alert oriented 2. She appears older than her age. she reports her mood has "okay", client stated "I'm so tired" she denies suicidal and homicidal ideation. The patient is quite uncooperative at times. Client states that I prefer not to tell you why i am here in the hospital I don't want to talk about it, its painful. PAST PSYCHIATRIC HISTORY: Diagnoses: Suicide attempts or Self-harm behavior: none Prior psychiatric hospitalizations; client has been hospitalized on an off at [facility] Substance Abuse history: no Previous psychiatric medications tried: Outpatient treatment: Client goes to see Dr. Prescott for outpatient treatment. PAST MEDICAL HISTORY: Family Psychiatric History None reported or documented SOCIAL HISTORY Marital Status: Client is single Living Arrangements: Employment Status: Client is retired Access to guns/weapons: She has no access to weapons or gun Education: She has a 12th grade level education History of Abuse: No history of abuse reports Legal History: She reports no history The Law REVIEW OF SYSTEMS Constitutional: Negative for weight loss ENT: Negative for stridor Respiratory: Negative for cough or hemoptysis All other systems reviewed and are negative Diagnoses: Treatment Plan Patient will be admitted for inpatient psychiatric evaluation, medication adjustment and close monitoring The patient's behavior, mood, sleep and appetite will be closely monitored. Patient will be enrolled in individual and group therapeutic sessions and encouraged to attend. Patient will be provided with a safe and structured environment. Patient's physical health needs will be addressed by the Hospitalist. Hospitalist Consulted Labs including CBC, CMP, Lipid profile and Hemoglobin A1C ordered Social Assessment will be completed and the Recreation Aide will work with patient and family to ensure a suitable and safe disposition Medication adjustment will be made as clinically indicated Usual Wellness Protestant/Preservation: - Start Trazodone 50 mg po QHS & 50 mg po QHS PRN between 10 PM & 2 AM for insomnia - Start Melatonin 5 mg po QHS to promote circadian rhythm - Start [place]-3 for brain health, reduce impulsivity, and as adjunctive treatment for mood disorder, continue upon discharge given overall benefits. - Start B1 prophylaxis with 200 mg po for 5 days The patient agreed on the treatment plan, understood the risk, benefit, alternative treatment, potential consequence of no treatment, and gave informed consent. Legal Status: Voluntary Reaction to Hospitalization: Accepting Medications and Allergies Allergies Allergy/AdvReac Type Severity Reaction Status Date / Time lithium Allergy Hives Verified 09/12/19 17:21 divalproex sodium AdvReac Swelling Verified 09/18/19 17:06 [From [facility]] Home Medications Medication Instructions Recorded Confirmed Last Taken Type Paliperidone Palmitate [Invega 156 mg QMONTH 07/30/19 09/18/19 09/05/19 History Sustenna] Trazodone HCl 50 mg PO QDAY 07/30/19 09/18/19 09/17/19 History Donepezil [Aricept] 10 mg PO QDAY 09/15/19 09/18/19 09/14/19 History Ferrous Sulfate [Ferrous Sulfate 1 tab PO DAILY 09/15/19 09/18/19 Unknown History 324 MG] Furosemide [Lasix TAB] 20 mg PO QDAY 09/15/19 09/18/19 09/14/19 History Memantine 10 mg PO BID 09/15/19 09/18/19 09/13/19 History ARIPiprazole [Abilify TAB] 5 mg PO DAILY 09/18/19 09/19/19 09/19/19 23:09 History ARIPiprazole [Aripiprazole] 5 mg PO QDAY 09/18/19 09/19/19 09/18/19 10:00 History haloperidoL [Haldol] 5 mg IM Q6H PRN 09/18/19 09/18/19 Unknown History Heparin 5,000 units SQ TID 09/20/19 09/20/19 09/19/19 06:35 History 5000 U LaMICtal 25 mg PO BID 09/20/19 09/20/19 09/18/19 22:00 History Results - Results Labs/Vitals: Laboratory Last Values POC Glucose 121 (70-105) H 09/19/19 10:04 Physician Certification - Certification Statement Physician Certification Statement: This is an acknowledgement statement that KERRIE DIXON is a 69 year old F who requires inpatient psychiatric admission for treatment which could reasonably be expected to improve the patient's condition for Estimated period of time patient will need to remain in the hospital: [ ] Plan for post-hospital care: [ ] <CLARY ANDERSON - Last Filed: 09/21/19 11:29> GP History & Physical - History of Present Illness Chief Complaint: Increased confusion and non-compliant with medications Medications and Allergies Active Meds: Active Medications Acetaminophen (Tylenol) 650 mg PO Q6H PRN PRN Reason: Pain, Mild (1-3) Donepezil HCl (Aricept) 10 mg PO QHS [facility] Last Admin: 09/20/19 21:32 Dose: 10 mg Documented by: Furosemide (Lasix) 20 mg PO QDAY [facility] Last Admin: 09/21/19 09:47 Dose: 20 mg Documented by: Haloperidol (Haldol) 5 mg PO Q6H PRN PRN Reason: Agitation Haloperidol Lactate (Haldol) 5 mg IM Q6H PRN PRN Reason: Agitation Lamotrigine (Lamictal) 25 mg PO BID [facility] Last Admin: 09/21/19 09:47 Dose: 25 mg Documented by: Lorazepam (Ativan) 2 mg PO Q6H PRN PRN Reason: Agitation Lorazepam (Ativan) 2 mg IM Q6H PRN PRN Reason: Agitation Memantine (Memantine) 10 mg PO BID [facility] Last Admin: 09/21/19 09:47 Dose: 10 mg Documented by: Quetiapine Fumarate (Seroquel) 25 mg PO DAILY [facility] Last Admin: 09/21/19 09:47 Dose: 25 mg Documented by: Trazodone HCl (Desyrel) 50 mg PO QHS [facility] Last Admin: 09/20/19 21:32 Dose: 50 mg Documented by: Results - Results Labs/Vitals: Laboratory Last Values POC Glucose 90 (70-105) 09/21/19 08:16 Last Vital Signs Temp 99.1 F 09/20/19 19:22 Pulse 109 H 09/20/19 19:22 Resp 20 09/20/19 19:22 BP 130/62 09/20/19 19:22 Pulse Ox 97 09/20/19 19:22 Physical Examination - Constitutional Vitals: Vital Signs Temp Pulse Resp BP Pulse Ox 99.1 F 109 H 20 130/62 97 09/20/19 19:22 09/20/19 19:22 09/20/19 19:22 09/20/19 19:22 09/20/19 19:22 Temperature -Last 24 Hours Temperature 99.1 F Mental Status Exam - Vital signs Last Vital Signs Temp 99.1 F 09/20/19 19:22 Pulse 109 H 09/20/19 19:22 Resp 20 09/20/19 19:22 BP 130/62 09/20/19 19:22 Pulse Ox 97 09/20/19 19:22 Physician Certification - Certification Statement Physician Certification Statement: This is an acknowledgement statement that KERRIE DIXON is a 69 year old F who requires inpatient psychiatric admission for treatment which could reasonably be expected to improve the patient's condition for Estimated period of time patient will need to remain in the hospital: [ ] Plan for post-hospital care: [ ]
--- NOTE | 2019-09-19 15:14 | Consultation ---
History of Present Illness - Reason for Consult Consult date: 09/19/19 medical management Requesting physician: CLARY ANDERSON - History of Present Illness Patient is a 69-year-old female with known history of bipolar disorder, schizophrenia, hypertension resident of [facility] presenting to the emergency room today with complaint of lower extremity pain and swelling. Patient has also been noticed to be more confused today and was brought into [facility] emergency room for further evaluation. According to family members patient has become progressively more confused lately and has not been able to ambulate very well. She is also said to have developed some blisters on her lower extremities. Patient is said to have had multiple falls. There has been no history of head injury. There has been no history of fever or chills, no nausea vomiting, no chest pain or shortness of breath. patient was seen by wound care, physical therapy The patients renal function improved but still very lethargic and obtunded requiring further monitoring in the hospital, although this has improved over the last 24 to 48 [address] to [facility] and we are consulted to assist with management of medical issues Past History Past Medical History: hypertension, hyperlipidemia Past Surgical History: No surgical history Social history: lives with family Family history: no significant family history Medications and Allergies Allergies Allergy/AdvReac Type Severity Reaction Status Date / Time lithium Allergy Hives Verified 09/12/19 17:21 divalproex sodium AdvReac Swelling Verified 09/18/19 17:06 [facility] Home Medications Medication Instructions Recorded Confirmed Last Taken Type Paliperidone Palmitate [Invega 156 mg QMONTH 07/30/19 09/18/19 09/05/19 History Sustenna] Trazodone HCl 50 mg PO QDAY 07/30/19 09/18/19 09/17/19 History Donepezil [Aricept] 10 mg PO QDAY 09/15/19 09/18/19 09/14/19 History Ferrous Sulfate [Ferrous Sulfate 1 tab PO DAILY 09/15/19 09/18/19 Unknown History 324 MG] Furosemide [Lasix TAB] 20 mg PO QDAY 09/15/19 09/18/19 09/14/19 History Memantine 10 mg PO BID 09/15/19 09/18/19 09/13/19 History ARIPiprazole [Abilify TAB] 5 mg PO DAILY 09/18/19 09/18/19 Unknown History ARIPiprazole [Aripiprazole] 5 mg PO QDAY 09/18/19 09/18/19 Unknown History haloperidoL [Haldol] 5 mg IM Q6H PRN 09/18/19 09/18/19 Unknown History Review of Systems ROS unobtainable: due to mental status (pateint refuses to speak or respond) Exam - Physical Exam Narrative exam: VITAL SIGNS: Reviewed. GENERAL: The patient appears normally developed, Vital signs as documented. HEAD: No signs of head trauma. EYES: Pupils are equal. Extraocular motions intact. EARS: Hearing grossly intact. MOUTH: Oropharynx is normal. NECK: No adenopathy, no JVD. CHEST: Chest with clear breath sounds bilaterally. No wheezes, rales, or rhonchi. CARDIAC: Regular rate and rhythm. S1 and S2, without murmurs, gallops, or rubs. VASCULAR: No edema. Peripheral pulses normal and equal in all extremities. ABDOMEN: Soft, non tender and non distended. No rebound or guarding, and no masses palpated. Bowel Sounds normal. MUSCULOSKELETAL: Unable to assess as patient is not willing to move her legs she screams for pain and palpation of the lower extremities.. Extremities without clubbing, cyanosis. No edema bilaterally worse on the left. NEUROLOGIC EXAM: Alert and oriented x 2 No focal sensory or strength deficits. Speech normal. Follows commands. PSYCHIATRIC: Mood flat . SKIN: detail exam as documented in skin assessment Results - Labs Labs: Abnormal lab results 09/19/19 Range/Units 10:04 POC Glucose 121 H (70-105) Assessment and Plan Patient is a 69-year-old female with known history of bipolar disorder, schizophrenia, hypertension resident of [facility] presenting to the emergency room today with complaint of lower extremity pain and swelling. Patient has also been noticed to be more confused today and was brought into the emergency room for further evaluation. According to family members patient has become progressively more confused lately and has not been able to ambulate very well. She is also said to have developed some blisters on her lower extremities. Patient is said to have had multiple falls. There has been no history of head injury. There has been no history of fever or chills, no nausea vomiting, no chest pain or shortness of breath. patient was seen by wound care, physical therapy The patients renal function improved but still very lethargic and obtunded requiring further monitoring in the hospital, although this has improved over the last 24 to 48 hours Pateint on discharge will continue with wound care sHe is medically cleared at this point for placement inpatient psych [facility] secondary to vasomotor nephropthy- recently resolved Encephalopathy secondary to Underlying Dementia and Schizophrenia Multiple falls and unable to ambulate Schizophrenia Mild Hyponatremia Right Heel Ulcer Plan Continue supportive care Encourage PO intake Wound care and off loading right heel Fall precautions DVT/GI PROPHY
[2019-09-19] MEDS ORDERED: HALOPERIDOL 5 MG TAB PO PRN (22:14)
[2019-09-19] MEDS ORDERED: HALOPERIDOL LACTATE 5 MG/1 ML INJ IM PRN (22:14)
[2019-09-19] MEDS ORDERED: LORazepam 2 MG TAB PO PRN (22:16)
[2019-09-19] MEDS ORDERED: LORazepam 2 MG/ML VIAL IM PRN (22:17)
[2019-09-19] MEDS ORDERED: ACETAMINOPHEN 325 MG TAB PO PRN (22:53)
[2019-09-19] MEDS: MEMANTINE 10 MG TAB PO SCH (22:55)
[2019-09-19] MEDS: DONEPEZIL 10 MG TAB PO SCH (22:59)
[2019-09-19] MEDS ORDERED: DONEPEZIL 5 MG TAB PO SCH (23:00)
[2019-09-19] MEDS: traZODone 50 MG TAB PO SCH (23:37)
[2019-09-19] MEDS: lamoTRIgine 25 MG TAB PO SCH (23:37)
--- NOTE | 2019-09-20 07:45 | Progress Note ---
Subjective Date of service: 09/20/19 Principal diagnosis: Schizoaffective disorder, Bipolar type Subjective Comment: I interviewed the patient this morning. Medical records reviewed and patient's progress was discussed with unit staff. Nursing note states patient has increased confusion and non-compliance w/ medication. upon arrival to the unit pt was pleasantly confused and talking to herself. While obtaining pt's blood sugar pt became physically aggressive. pt balled up her fist and starting punching staff. pt replied " I like to be combative". pt is A&O to self, denies pain, SI/HI and AVH. In my interview with the patient this morning, the patient is lying in bed awake, rubbing her temples. She is confused and hard to follow. Upon me entering the room, she calls me "Aunt Gsiela" and begins repeating the word divina several times. She then started spelling out words. Ms. Sung states she is "great and blessed and highly favored by the Lord." When asked if she slept well, the patient replied "good. What's more divina than sleeping good." She says she hears "pretty music voices that sound real pleasant." She says her appetite is good. She denies SI/HI. Reason for continued inpatient treatment: Patient is very disorganized, unable to care for self and still very psychotic. Review of Symptoms: Constitutional: Negative for weight loss ENT: Negative for stridor Respiratory: Negative for cough or hemoptysis All other systems reviewed and are negative MSE Appearance: Wearing appropriate clothing. Good hygiene Behavior: calm, talkative Mood: "Great and blessed and highly favored by the Lord" Affect: Congruent with stated mood Thought Process: Circumstantial, Flight of Ideas Speech: Normal rate. Thought Content Harmfulness Denies SI/HI Hallucinations: "pretty music voices" Delusions: none elicited Consciousness: alert. Cognition/Memory: Poor. Insight/Judgment: Poor. Assessment and Plan - Patient Problems (1) Dementia W/Behavioral Disturbances Current Visit: Yes Status: Acute Treatment Plan Due to the psychiatric conditions and treatment listed in the Assessment and Plan - the patient requires continued hospitalization. Will continue inpatient treatment to allow for medication adjustment and monitoring. Will continue q15 min safety checks. Will encourage the use of environmental modifications and non-pharmacologic approaches for the management of behavioral and psychological symptoms. Will continue current psych medications Medication adjustments made today: Started Seroquel 25mg po daily Monitor for medication side effects. The patient will continue on medications for physical illnesses, and Hospitalist will closely monitor these Continue intensive physical and occupational therapies. Monitor patient's mood, sleep, appetite, and behavior closely. Encourage patient to participate in individual and group therapeutic sessions on the hood. Will provide a safe and therapeutic environment for patient. Estimated Length of stay, 5 days Medications and Allergies Allergies Allergy/AdvReac Type Severity Reaction Status Date / Time lithium Allergy Hives Verified 09/12/19 17:21 divalproex sodium AdvReac Swelling Verified 09/18/19 17:06 [From Depakote] Home Medications Medication Instructions Recorded Confirmed Last Taken Type Paliperidone Palmitate [Invega 156 mg QMONTH 07/30/19 09/18/19 09/05/19 History Sustenna] Trazodone HCl 50 mg PO QDAY 07/30/19 09/18/19 09/17/19 History Donepezil [Aricept] 10 mg PO QDAY 09/15/19 09/18/19 09/14/19 History Ferrous Sulfate [Ferrous Sulfate 1 tab PO DAILY 09/15/19 09/18/19 Unknown History 324 MG] Furosemide [Lasix TAB] 20 mg PO QDAY 09/15/19 09/18/19 09/14/19 History Memantine 10 mg PO BID 09/15/19 09/18/19 09/13/19 History ARIPiprazole [Abilify TAB] 5 mg PO DAILY 09/18/19 09/19/19 09/19/19 23:09 History ARIPiprazole [Aripiprazole] 5 mg PO QDAY 09/18/19 09/19/19 09/18/19 10:00 History haloperidoL [Haldol] 5 mg IM Q6H PRN 09/18/19 09/18/19 Unknown History Heparin 5,000 units SQ TID 09/20/19 09/20/19 09/19/19 06:35 History 5000 U LaMICtal 25 mg PO BID 09/20/19 09/20/19 09/18/19 22:00 History Active Meds: Active Medications Acetaminophen (Tylenol) 650 mg PO Q6H PRN PRN Reason: Pain, Mild (1-3) Donepezil HCl (Aricept) 10 mg PO QHS [facility] Last Admin: 09/19/19 22:59 Dose: 10 mg Documented by: Furosemide (Lasix) 20 mg PO QDAY [facility] Haloperidol (Haldol) 5 mg PO Q6H PRN PRN Reason: Agitation Haloperidol Lactate (Haldol) 5 mg IM Q6H PRN PRN Reason: Agitation Lamotrigine (Lamictal) 25 mg PO BID [facility] Last Admin: 09/19/19 23:37 Dose: 25 mg Documented by: Lorazepam (Ativan) 2 mg PO Q6H PRN PRN Reason: Agitation Lorazepam (Ativan) 2 mg IM Q6H PRN PRN Reason: Agitation Memantine (Memantine) 10 mg PO BID [facility] Last Admin: 09/19/19 22:55 Dose: 10 mg Documented by: Trazodone HCl (Desyrel) 50 mg PO QHS [facility] Last Admin: 09/19/19 23:37 Dose: 50 mg Documented by: Results - Results Labs/Vitals: Laboratory Last Values POC Glucose 121 (70-105) H 09/19/19 10:04 Last Vital Signs Temp 98.4 F 09/19/19 22:00 Pulse 109 H 09/19/19 22:00 Resp 18 09/19/19 22:00 BP 109/63 09/19/19 22:00 Pulse Ox 97 09/19/19 22:00
[2019-09-20] MEDS ORDERED: ARIPiprazole 5 MG TAB PO SCH (10:00)
[2019-09-20] MEDS ORDERED: FERROUS SULFATE PO SCH (10:00)
[2019-09-20] MEDS: FUROSEMIDE 20 MG TAB PO SCH (10:12)
[2019-09-20] MEDS: lamoTRIgine 25 MG TAB PO SCH ×2 (10:12→21:32)
[2019-09-20] MEDS: MEMANTINE 10 MG TAB PO SCH ×2 (10:12→21:31)
[2019-09-20] MEDS: QUEtiapine 25 MG TAB PO SCH (10:12)
[2019-09-20] MEDS: DONEPEZIL 10 MG TAB PO SCH (21:32)
[2019-09-20] MEDS: traZODone 50 MG TAB PO SCH (21:32)
--- NOTE | 2019-09-21 07:45 | Progress Note ---
Subjective Date of service: 09/21/19 Principal diagnosis: Schizoaffective disorder, Bipolar type Subjective Comment: I interviewed the patient this morning. Medical records reviewed and patient's progress was discussed with unit staff. Nursing staff reports that patient is medication compliant, good appetite, easily agitated, confused, needs assistance with feeding, alert and oriented to person and place, able to make needs known. In my interview with the patient this morning, the patient reports mood as "ok and soft". She stated my "Appetite is hungry". Sleep last night was ok . Patient denies current SI stated, "I will never" she reports hearing voices say "try". She contracts to ask the staff for help if any of these symptoms increase. Review of Symptoms: Constitutional: Negative for weight loss ENT: Negative for stridor Respiratory: Negative for cough or hemoptysis All other systems reviewed and are negative MSE Appearance: Wearing appropriate clothing. Good hygiene Behavior: Pleasant and cooperative. Mood: "ok" Affect: Congruent with stated mood Thought Process: Goal directed Speech: Normal rate. Thought Content Harmfulness Denies SI/HI Hallucinations: patient denies Delusions: none elicited Consciousness: alert. Cognition/Memory: Impaired Insight/Judgment: Limited. Assessment and Plan - Patient Problems (1) Dementia W/Behavioral Disturbances Current Visit: Yes Status: Acute Treatment Plan Due to the psychiatric conditions and treatment listed in the Assessment and Plan - the patient requires continued hospitalization. Will continue inpatient treatment to allow for medication adjustment and monitoring. Will continue q15 min safety checks. Will encourage the use of environmental modifications and non-pharmacologic approaches for the management of behavioral and psychological symptoms. Will continue current psych medications Monitor for medication side effects. The patient will continue on medications for physical illnesses, and Hospitalist will closely monitor these Continue intensive physical and occupational therapies. Monitor patient's mood, sleep, appetite, and behavior closely. Encourage patient to participate in individual and group therapeutic sessions on the hood. Will provide a safe and therapeutic environment for patient. ELOS Medications and Allergies Allergies Allergy/AdvReac Type Severity Reaction Status Date / Time lithium Allergy Hives Verified 09/12/19 17:21 divalproex sodium AdvReac Swelling Verified 09/18/19 17:06 [From Depakote] Home Medications Medication Instructions Recorded Confirmed Last Taken Type Paliperidone Palmitate [Invega 156 mg QMONTH 07/30/19 09/18/19 09/05/19 History Sustenna] Trazodone HCl 50 mg PO QDAY 07/30/19 09/18/19 09/17/19 History Donepezil [Aricept] 10 mg PO QDAY 09/15/19 09/18/19 09/14/19 History Ferrous Sulfate [Ferrous Sulfate 1 tab PO DAILY 09/15/19 09/18/19 Unknown History 324 MG] Furosemide [Lasix TAB] 20 mg PO QDAY 09/15/19 09/18/19 09/14/19 History Memantine 10 mg PO BID 09/15/19 09/18/19 09/13/19 History ARIPiprazole [Abilify TAB] 5 mg PO DAILY 09/18/19 09/19/19 09/19/19 23:09 History ARIPiprazole [Aripiprazole] 5 mg PO QDAY 09/18/19 09/19/19 09/18/19 10:00 History haloperidoL [Haldol] 5 mg IM Q6H PRN 09/18/19 09/18/19 Unknown History Heparin 5,000 units SQ TID 09/20/19 09/20/19 09/19/19 06:35 History 5000 U LaMICtal 25 mg PO BID 09/20/19 09/20/19 09/18/19 22:00 History Active Meds: Active Medications Acetaminophen (Tylenol) 650 mg PO Q6H PRN PRN Reason: Pain, Mild (1-3) Donepezil HCl (Aricept) 10 mg PO QHS [facility] Last Admin: 09/20/19 21:32 Dose: 10 mg Documented by: Furosemide (Lasix) 20 mg PO QDAY [facility] Last Admin: 09/20/19 10:12 Dose: 20 mg Documented by: Haloperidol (Haldol) 5 mg PO Q6H PRN PRN Reason: Agitation Haloperidol Lactate (Haldol) 5 mg IM Q6H PRN PRN Reason: Agitation Lamotrigine (Lamictal) 25 mg PO BID [facility] Last Admin: 09/20/19 21:32 Dose: 25 mg Documented by: Lorazepam (Ativan) 2 mg PO Q6H PRN PRN Reason: Agitation Lorazepam (Ativan) 2 mg IM Q6H PRN PRN Reason: Agitation Memantine (Memantine) 10 mg PO BID [facility] Last Admin: 09/20/19 21:31 Dose: 10 mg Documented by: Quetiapine Fumarate (Seroquel) 25 mg PO DAILY [facility] Last Admin: 09/20/19 10:12 Dose: 25 mg Documented by: Trazodone HCl (Desyrel) 50 mg PO QHS [facility] Last Admin: 09/20/19 21:32 Dose: 50 mg Documented by: Results - Results Labs/Vitals: Laboratory Last Values POC Glucose 90 (70-105) 09/20/19 20:01 Last Vital Signs Temp 99.1 F 09/20/19 19:22 Pulse 109 H 09/20/19 19:22 Resp 20 09/20/19 19:22 BP 130/62 09/20/19 19:22 Pulse Ox 97 09/20/19 19:22
[2019-09-21] MEDS: QUEtiapine 25 MG TAB PO SCH (09:47)
[2019-09-21] MEDS: MEMANTINE 10 MG TAB PO SCH ×2 (09:47→21:33)
[2019-09-21] MEDS: FUROSEMIDE 20 MG TAB PO SCH (09:47)
[2019-09-21] MEDS: lamoTRIgine 25 MG TAB PO SCH ×2 (09:47→21:33)
[2019-09-21] MEDS: DONEPEZIL 10 MG TAB PO SCH (21:33)
[2019-09-21] MEDS: traZODone 50 MG TAB PO SCH (21:33)
[2019-09-22] MEDS: MEMANTINE 10 MG TAB PO SCH ×2 (09:32→21:17)
[2019-09-22] MEDS: lamoTRIgine 25 MG TAB PO SCH ×2 (09:32→21:18)
[2019-09-22] MEDS: QUEtiapine 25 MG TAB PO SCH (09:32)
[2019-09-22] MEDS: FUROSEMIDE 20 MG TAB PO SCH (09:32)
--- NOTE | 2019-09-22 10:09 | Progress Note ---
Subjective Date of service: 09/22/19 Principal diagnosis: Schizoaffective disorder, Bipolar type Subjective Comment: I interviewed the patient this morning. Medical records reviewed and patient's progress was discussed with unit staff. Nursing staff reports that patient was restless during the night, slept only an hour. The patient was constantly stripping her clothes off most of the night. In my interview with the patient this morning, the patient reports her mood as "ok ". she stated my "Appetite is excellent". The patient denied suicidal ideation stating "that's not me, I would not do that". She states, I have been up all night studying the word of God and just being happy". She denied seeing or hearing things. Review of Symptoms: Constitutional: Negative for weight loss ENT: Negative for stridor Respiratory: Negative for cough or hemoptysis All other systems reviewed and are negative MSE Appearance: Wearing appropriate clothing. Good hygiene Behavior: Pleasant and cooperative. Mood: good Affect: Congruent with stated mood Thought Process: Goal directed Speech: Normal rate. Thought Content Harmfulness Denies SI/HI Hallucinations: patient denies Delusions: none elicited Consciousness: alert. Cognition/Memory: impaired Insight/Judgment: Limited. Diagnoses: Schizoaffective disorder, bipolar type Treatment Plan Due to the psychiatric conditions and treatment listed in the Assessment and Plan - the patient requires continued hospitalization. Will continue inpatient treatment to allow for medication adjustment and monitoring. Will continue q15 min safety checks. Will encourage the use of environmental modifications and non-pharmacologic approaches for the management of behavioral and psychological symptoms. Will continue current psych medications Monitor for medication side effects. Medication adjustment made today: Trazodone increased to 100 mg daily at bedtime The patient will continue on medications for physical illnesses, and Hospitalist will closely monitor these Continue intensive physical and occupational therapies. Monitor patient's mood, sleep, appetite, and behavior closely. Encourage patient to participate in individual and group therapeutic sessions on the hood. Will provide a safe and therapeutic environment for patient. ELOS 2 DAYS Medications and Allergies Allergies Allergy/AdvReac Type Severity Reaction Status Date / Time lithium Allergy Hives Verified 09/12/19 17:21 divalproex sodium AdvReac Swelling Verified 09/18/19 17:06 [From Depakote] Home Medications Medication Instructions Recorded Confirmed Last Taken Type Paliperidone Palmitate [Invega 156 mg QMONTH 07/30/19 09/18/1919 History Sustenna] Trazodone HCl 50 mg PO QDAY 07/30/19 09/18/19 09/17/19 History Donepezil [Aricept] 10 mg PO QDAY 09/15/19 09/18/19 09/14/19 History Ferrous Sulfate [Ferrous Sulfate 1 tab PO DAILY 09/15/19 09/18/19 Unknown History 324 MG] Furosemide [Lasix TAB] 20 mg PO QDAY 09/15/19 09/18/19 09/14/19 History Memantine 10 mg PO BID 09/15/19 09/18/19 09/13/19 History ARIPiprazole [Abilify TAB] 5 mg PO DAILY 09/18/19 09/19/19 09/19/19 23:09 History ARIPiprazole [Aripiprazole] 5 mg PO QDAY 09/18/19 09/19/19 09/18/19 10:00 History haloperidoL [Haldol] 5 mg IM Q6H PRN 09/18/19 09/18/19 Unknown History Heparin 5,000 units SQ TID 09/20/19 09/20/19 09/19/19 06:35 History 5000 U LaMICtal 25 mg PO BID 09/20/19 09/20/19 09/18/19 22:00 History Active Meds: Active Medications Acetaminophen (Tylenol) 650 mg PO Q6H PRN PRN Reason: Pain, Mild (1-3) Donepezil HCl (Aricept) 10 mg PO QHS [facility] Last Admin: 09/21/19 21:33 Dose: 10 mg Documented by: Furosemide (Lasix) 20 mg PO QDAY [facility] Last Admin: 09/22/19 09:32 Dose: 20 mg Documented by: Haloperidol (Haldol) 5 mg PO Q6H PRN PRN Reason: Agitation Haloperidol Lactate (Haldol) 5 mg IM Q6H PRN PRN Reason: Agitation Lamotrigine (Lamictal) 25 mg PO BID [facility] Last Admin: 09/22/19 09:32 Dose: 25 mg Documented by: Lorazepam (Ativan) 2 mg PO Q6H PRN PRN Reason: Agitation Lorazepam (Ativan) 2 mg IM Q6H PRN PRN Reason: Agitation Memantine (Memantine) 10 mg PO BID [facility] Last Admin: 09/22/19 09:32 Dose: 10 mg Documented by: Quetiapine Fumarate (Seroquel) 25 mg PO DAILY [facility] Last Admin: 09/22/19 09:32 Dose: 25 mg Documented by: Trazodone HCl (Desyrel) 50 mg PO QHS [facility] Last Admin: 09/21/19 21:33 Dose: 50 mg Documented by: Results - Results Labs/Vitals: Laboratory Last Values POC Glucose 113 (70-105) H 09/21/19 20:08 Last Vital Signs Temp 97.9 F 09/22/19 08:09 Pulse 98 H 09/22/19 08:10 Resp 20 09/22/19 08:09 BP 113/67 09/22/19 08:09 Pulse Ox 99 09/22/19 08:10
[2019-09-22] MEDS: DONEPEZIL 10 MG TAB PO SCH (21:17)
[2019-09-22] MEDS ORDERED: traZODone 100 MG TAB PO SCH (22:00)
--- NOTE | 2019-09-23 07:22 | Discharge Summary ---
Providers - Providers Date of Admission: 09/19/19 08:45 Date of discharge: 09/23/19 Attending physician: CLARY ANDERSON MD 09/18/19 11:54 Consult to Physician [CONS] Routine Comment: Consulting Provider: MAURILIO RAY Physician Instructions: Reason For Exam: [facility] Primary care physician: RORO HARVEY, PAC-C Hospitalization Condition: Stable Disposition: DC-50 TO HOSPICE (HOME) Time spent for discharge: 36mins Allergies/Adverse Reactions: Allergies lithium Allergy (Verified 09/12/19 17:21) Hives divalproex sodium [From Depakote] Adverse Reaction (Verified 09/18/19 17:06) Swelling Vital Signs: Last Vital Signs Temp 98.3 F 09/22/19 19:30 Pulse 121 H 09/22/19 19:30 Resp 20 09/22/19 19:30 BP 112/66 09/22/19 19:30 Pulse Ox 96 09/22/19 19:30 Last Lab: Laboratory Last Values POC Glucose 113 (70-105) H 09/21/19 20:08 Core Measure Documentation - Palliative Care Palliative Care/ Comfort Measures: Not Applicable - Core Measures Any of the following diagnoses?: none Exam - Constitutional Vitals: Temp Pulse Resp BP Pulse Ox 98.3 F 121 H 20 112/66 96 09/22/19 19:30 09/22/19 19:30 09/22/19 19:30 09/22/19 19:30 09/22/19 19:30 General appearance: Present: no acute distress, well-nourished - EENT Eyes: Present: PERRL, EOM intact ENT: hearing intact, clear oral mucosa - Neck Neck: Present: supple, normal ROM - Respiratory Respiratory effort: normal Plan Activity: advance as tolerated Weight Bearing Status: Weight Bear as Tolerated Care Plan Goals: maintain good and stable mental health Plan of Treatment: The patient should be compliant with medications, not to use drugs and not to drink alcohol. The patient understands that if suicidal ideas, homicidal ideas, or any endangering thoughts arise, the patient should immediately seek for emergent assistance including but not limited to crisis hot line and emergency room. Follow up with outpatient Psychiatrist and PCP within 7 - 14 days of discharge. Health Concerns: none Assessment: acute kidney injury, bilateral knee pain, acute encephalopathy, GI bleed Follow up with: RORO HARVEY, PAC-C [Primary Care Provider] - 7 Days Prescriptions: traZODone [Desyrel] 100 mg PO QHS #30 tablet Donepezil [Aricept] 10 mg PO QDAY #30 ARIPiprazole [Aripiprazole] 5 mg PO QDAY #30 Ferrous Sulfate [Ferrous Sulfate 324 MG] 1 tab PO DAILY #30 lamoTRIgine [LaMICtal] 25 mg PO BID #60 tablet Furosemide [Lasix TAB] 20 mg PO QDAY #30 Memantine 10 mg PO BID #60 QUEtiapine [SEROquel] 25 mg PO DAILY #30 tablet Trazodone HCl 50 mg PO QDAY #30
[2019-09-23 08:27] VITALS: BP 142/86
[2019-09-23] MEDS: FUROSEMIDE 20 MG TAB PO SCH (09:36)
[2019-09-23] MEDS: lamoTRIgine 25 MG TAB PO SCH (09:36)
[2019-09-23] MEDS: MEMANTINE 10 MG TAB PO SCH (09:36)
[2019-09-23] MEDS: QUEtiapine 25 MG TAB PO SCH (09:36)
== END 2019-09-23 12:23 | disposition hospice, home (50) | DRG 885 ==
LOC: 3A 09:18 → UNDOADMIN 09:18 → 5A 09-19 08:45
PROVIDERS: ADMIT Psychiatry & Neurology Psychiatry; ATTEND Psychiatry & Neurology Psychiatry
DX: F25.0 Schizoaffective disorder, bipolar type (principal); N17.0 Acute kidney failure with tubular necrosis; G93.40 Encephalopathy, unspecified; E87.1 Hypo-osmolality and hyponatremia; K92.2 Gastrointestinal hemorrhage, unspecified; L97.419 Non-pressure chronic ulcer of right heel and midfoot with unspecified severity; I10 Essential (primary) hypertension; F03.90 Unspecified dementia, unspecified severity, without behavioral disturbance, psychotic disturbance, mood disturbance, and anxiety; Z79.899 Other long term (current) drug therapy
CPT/HCPCS: 82962; G0378